=== PATIENT | female | born 1960 | race Hispanic/Latino ===

== ENCOUNTER 2018-05-25 17:21 | Emergency (ER) | payer OTHER ==
[~2018-05-25] VITALS: Ht 149.9 cm; Wt 105.2 kg
--- OUTSIDE RECORDS SUMMARY | 2018-05-25 17:23 | XMS REPORT | Continuity of Care Document ---
Author Author [facility] Organization Interface Address Unknown Phone Unavailable Problems Problem Status Onset Date Classification Date Reported Comments Source 1ST NIGHT - 85502 Active 09/19/2017 [place] G44.209 Active 09/13/2017 [facility] UNILATERAL PRIMARY OSTEOARTHRITIS OF THE Active 10/17/2015 [facility] Acid reflux Active Problem 10/04/2017 [facility] Anxiety Active Problem 10/04/2017 [facility] Arthritis Active Problem 10/04/2017 [facility] Chest pain<sup>1</sup> Resolved Problem 10/04/2017 States had chest pain about 6 months ago; pt didn't remember who she saw or what was done. Later provided info that she saw Dr. Lomeli, . Per Dr Lomeli's office pt was last seen in 2012, but now has an appointment for 12-07-15 for clearance. [facility] Cough with sputum<sup>2</sup> Resolved Problem 10/04/2017 States had a productive cough 3 weeks ago, states now resolved. [facility] Dyspnea on exertion<sup>3</sup> Active Problem 10/04/2017 Walking 2 blocks or 2 flights of stairs. [facility] Neuropathy<sup>4</sup> Active Problem 10/04/2017 Numbness 2 fingers Right hand. [facility] Obesity, morbid (<span [id number]">Confirmed</span>)<sup>5</sup> Active Problem 10/04/2017 BMI 55 [facility] Poor historian<sup>6, 7</sup> Active Problem 10/04/2017 Pt was unable to provide much information regarding her health history at clinic visit. Pt later provided some surgical history info. [facility] Final: Osteoarthritis of knee, unspecified 12/18/2015 [facility] OSTEOARTHRITIS OF KNEE, UNSPECIFIED Active [facility] Medications Medication Details Route Status Patient Instructions Ordering Provider Order Date Source enoxaparin 40 mg/0.4 mL subcutaneous solution 40 mg=0.4 mL, SUB-Q, Daily, X 21 day, # 8 mL, 0 Refill(s) Active 12/15/2015 [facility] Docusate Sodium 100 MG Oral Capsule 100 mg=1 cap, PO, BID, # 28 cap, 0 Refill(s) Active 12/15/2015 [facility] Acetaminophen 325 MG / Hydrocodone Bitartrate 10 MG Oral Tablet [[place]ab[place] 10/325] 1 tab, PO, Q6H, PRN Pain Score 4-6, X 14 day, # 60 tab, 0 Refill(s) Active 12/15/2015 [facility] promethazine 25 mg oral tablet 25 mg=1 tab, PO, Q6H, PRN Itching, 0 Refill(s) Active 12/15/2015 [facility] potassium chloride 20 mEq, 1 tab, Route: PO, Drug form: ERTAB, ONCE, Dosing Weight 96.364, kg, Priority: NOW, Start date: 12/15/15 6:55:00 CDT, Stop date: 12/15/15 6:55:00 CDTNotes: (Same as: K-Dur 20) "Do Not Crush" With food and full glass of water Inactive 12/15/2015 [facility] Morphine 30 mL, Route: IV, Initial Loading Dose: 2 mg, HEEL STIFFENER Dose: 1 mg, HEEL STIFFENER Lockout: 10 minutes, Continuous Basal Rate: 0 mg, 4 Hour Limit (In MG): 30, Drug Form: INJ, Continuous, Start date: 12/13/15 18:30:00 CDT Inactive 12/13/2015 [facility] gabapentin 300 MG Oral Capsule [Neurontin] 300 mg, Route: PO, Drug form: CAP, Q8H, Dosing Weight 96.364, kg, (CrCl > 60 ml/min), Start date: 12/13/15 16:00:00 CDT, Duration: 30 day, Stop date: 01/12/16 8:00:00 CDT Inactive 12/13/2015 [facility] ketOROLAC 30 mg/mL injectable solution 30 mg, 1 mL, Route: IVP, Drug form: INJ, Q6H, Dosing Weight 96.364, kg, PRN Pain Score 4-6, Start date: 12/13/15 14:11:00 CDT, Stop date: 12/17/15 14:10:00 CDTNotes: (Same as:Toradol) IV bolus must be given >15 seconds. Give IM administration slowly and deeply into the muscle. Not for use > 4 days MEDICATION WASTE Product Size: 30 mg Product Wasted: ___ mg No Longer Active 12/13/2015 [facility] Acetaminophen 325 MG / Oxycodone Hydrochloride 5 MG Oral Tablet [Percocet 5/325] 1 tab, Route: PO, Drug Form: TAB, Dosing Weight 96.364, kg, Q6H, PRN Pain Score 7-10, Start date: 12/13/15 14:11:00 CDT, Stop date: 01/12/16 14:10:00 CDTNotes: Do not exceed 4gm/day of acetaminophen. (Same as: Percocet-5/325) No Longer Active 12/13/2015 [facility] Protonix 40 mg, 1 tab, Route: PO, Drug form: ECTAB, Daily, Start date: 12/13/15 9:00:00 CDT, Duration: 30 day, Stop date: 01/11/16 9:00:00 CDTNotes: Tablet should not be chewed or crushed. (Same as: Protonix) No Longer Active 12/13/2015 [facility] duloxetine 60 mg, 2 cap, Route: PO, Drug form: DRC, Daily, Dosing Weight 96.364, kg, Start date: 12/13/15 9:00:00 CDT, Duration: 30 day, Stop date: 01/11/16 9:00:00 CDTNotes: (Same as: Cymbalta) (Do Not Crush) No Longer Active 12/13/2015 [facility] doxycycline hyclate 100 MG Oral Capsule 100 mg, 1 tab, Route: PO, Drug form: TAB, Daily, Dosing Weight 96.364, kg, Start date: 12/13/15 9:00:00 CDT, Duration: 30 day, Stop date: 01/11/16 9:00:00 CDTNotes: NO MILK/ANTACIDS/IRON Take 1 hour before or 2 hours after dairy products No Longer Active 12/13/2015 [facility] cyclobenzaprine 10 mg, 1 tab, Route: PO, Drug form: TAB, Daily, Dosing Weight 96.364, kg, Start date: 12/13/15 9:00:00 CDT, Duration: 30 day, Stop date: 01/11/16 9:00:00 CDTNotes: (Same As: Flexeril) No Longer Active 12/13/2015 [facility] Nuvigil 150mg tab Nuvigil 150mg tab, 1 tab, Drug form: MISC, Route: PO, Daily, 12/13/15 9:00:00 CDT, Duration: 30 day, Stop date: 01/11/16 9:00:00 CDT No Longer Active 12/13/2015 [facility] Acetaminophen 325 MG / Hydrocodone Bitartrate 10 MG Oral Tablet [[place]ab[place] 10/325] 2 tab, Route: PO, Drug Form: TAB, Dosing Weight 96.364, kg, Q6H, PRN Pain Score 7-10, Start date: 12/13/15 8:42:00 CDT, Duration: 30 day, Stop date: 01/12/16 8:41:00 CDTNotes: Do not exceed 4gm/day of acetaminophen. (Same as: Mabton 325/10) No Longer Active 12/13/2015 [facility] potassium chloride 40 mEq, 2 pkt, Route: PO, Drug form: PDR/REC, ONCE, Dosing Weight 96.364, kg, Start date: 12/13/15 7:05:00 CDT, Stop date: 12/13/15 7:05:00 CDTNotes: (Same as: K-Diana) With food and full glass of water Inactive 12/13/2015 [facility] topiramate 200 mg, 2 tab, Route: PO, Drug form: TAB, Daily, Dosing Weight 96.364, kg, Start date: 12/12/15 22:00:00 CDT, Duration: 30 day, Stop date: 01/10/16 22:00:00 CDTNotes: (Same As: Topamax) "Do Not Crush" No Longer Active 12/13/2015 [facility] Enoxaparin 40 mg, 0.4 mL, Route: SUB-Q, Drug form: INJ, [id number], Dosing Weight 96.364, kg, Consider for obese patients, Start date: 12/12/15 20:57:00 CDT, Duration: 30 day, Stop date: 01/11/16 8:57:00 CDTNotes: (Same as: Lovenox) No Longer Active 12/13/2015 [facility] Docusate Sodium 100 MG Oral Capsule 100 mg, 1 cap, Route: PO, Drug form: CAP, BID, Dosing Weight 96.364, kg, Start date: 12/12/15 17:00:00 CDT, Duration: 30 day, Stop date: 01/11/16 9:00:00 CDTNotes: (Same as: Colace) (Do Not Crush) No Longer Active 12/12/2015 [facility] ceFAZolin (SCIP) 2 gm, 100 mL, Route: IVPB, Drug form: INJ, Q8H, Dosing Weight 96.364, kg, Start date: 12/12/15 15:00:00 CDT, Duration: 1 day, Stop date: 12/13/15 7:00:00 CDTNotes: Same as Ancef No Longer Active 12/12/2015 [facility] Omeprazole 20 mg, Route: PO, Drug form: DRC, Daily, Dosing Weight 96.364, kg, Start date: 12/12/15 9:00:00 CDT, Duration: 30 day, Stop date: 01/10/16 9:00:00 CDT Inactive 12/12/2015 [facility] gabapentin 600 MG Oral Tablet 600 mg, 2 cap, Route: PO, Drug form: CAP, Daily, Dosing Weight 96.364, kg, Start date: 12/12/15 9:00:00 CDT, Duration: 30 day, Stop date: 01/10/16 9:00:00 CDTNotes: (Same as: Neurontin) No Longer Active 12/12/2015 [facility] Furosemide 20 MG Oral Tablet 20 mg, 1 tab, Route: PO, Drug form: TAB, Daily, Dosing Weight 96.364, kg, Start date: 12/12/15 9:00:00 CDT, Duration: 30 day, Stop date: 01/10/16 9:00:00 CDTNotes: (Same as: Lasix) May cause GI upset. Give with food or milk. No Longer Active 12/12/2015 [facility] Nuvigil 150 mg, Route: PO, Drug form: TAB, Daily, Dosing Weight 96.364, kg, Start date: 12/12/15 9:00:00 CDT, Duration: 30 day, Stop date: 01/10/16 9:00:00 CDT Inactive 12/12/2015 [facility] Morphine 30 mg, 30 mL, Route: IV, Initial Loading Dose: 2 mg, HEEL STIFFENER Dose: 1 mg, HEEL STIFFENER Lockout: 10 minutes, Continuous Basal Rate: 0 mg, 4 Hour Limit (In MG): 30, Drug Form: INJ, Continuous, Start date: 12/12/15 9:00:00 CDT, Duration: 30 day, Stop date: 01/11/16 8...Notes: Dose: Delay: Basal rate: 4hr limit: (Same as:Eleonora-Jc) No Longer Active 12/12/2015 [facility] Promethazine 25 mg, 1 tab, Route: PO, Drug form: TAB, Q6H, Dosing Weight 96.364, kg, PRN Itching, Start date: 12/12/15 8:59:00 CDT, Duration: 30 day, Stop date: 01/11/16 8:58:00 CDTNotes: (Same as: Phenergan) No Longer Active 12/12/2015 [facility] Hydroxyzine Hydrochloride 25 MG Oral Capsule 25 mg, 1 cap, Route: PO, Drug form: CAP, Daily, Dosing Weight 96.364, kg, PRN Itching, Start date: 12/12/15 8:58:00 CDT, Duration: 30 day, Stop date: 01/11/16 8:57:00 CDTNotes: (Same as: Vistaril) No Longer Active 12/12/2015 [facility] 200 ACTUAT Albuterol 0.09 MG/ACTUAT Metered Dose Inhaler [ProAir HFA] 90 microgram, Route: INHALER, Drug Form: AERO/A, Dosing Weight 96.364, kg, Q4H, PRN Wheezing, Start date: 12/12/15 8:57:00 CDT, Stop date: 01/11/16 8:56:00 CDTNotes: Albuterol 90 microgram/inh 8gm HFA WASTE: Aerosol - Return to Pharmacy Same as: Ventolin, Proventil No Longer Active 12/12/2015 [facility] Naloxone 0.04 mg, 0.1 mL, Route: IVP, Drug form: INJ, Q2MIN, Dosing Weight 96.364, kg, PRN Narcotic Reversal, Start date: 12/12/15 8:55:00 CDT, Duration: 30 day, Stop date: 01/11/16 8:54:00 CDTNotes: Same as Narcan No Longer Active 12/12/2015 [facility] Dulcolax Laxative 5 mg, 1 tab, Route: PO, Drug form: ECTAB, Q24H, Dosing Weight 96.364, kg, PRN Constipation, Start date: 12/12/15 8:55:00 CDT, Duration: 30 day, Stop date: 01/11/16 8:54:00 CDTNotes: (Same As: Dulcolax, Correctol) (Do Not Crush) "Do Not Crush" No Longer Active 12/12/2015 [facility] Diphenhydramine 12.5 mg, 5 mL, Route: PO, Drug form: LIQ, Q6H, Dosing Weight 96.364, kg, PRN Itching, Start date: 12/12/15 8:55:00 CDT, Duration: 30 day, Stop date: 01/11/16 8:54:00 CDTNotes: (Same as: Benadryl) No Longer Active 12/12/2015 [facility] Lactated Ringers 1,000 mL 1,000 mL, Rate: 125 ml/hr, Infuse over: 8 hr, Route: IV, Dosing Weight 96.364 kg, Total Volume: 1,000, Start date: 12/12/15 8:55:00 CDT, Duration: 30 day, Stop date: 01/11/16 8:54:00 CDT No Longer Active 12/12/2015 [facility] Ondansetron 4 mg, 2 mL, Route: IVP, Drug form: INJ, Q6H, Dosing Weight 96.364, kg, PRN Nausea & Vomiting, Start date: 12/12/15 8:55:00 CDT, Duration: 30 day, Stop date: 01/11/16 8:54:00 CDTNotes: (Same as: Grover) MEDICATION WASTE Product Size: 4 mg Product Wasted: ___ mg No Longer Active 12/12/2015 [facility] zolpidem 5 mg, 1 tab, Route: PO, Drug form: TAB, Bedtime, Dosing Weight 96.364, kg, PRN Insomnia, Start date: 12/12/15 8:55:00 CDT, Duration: 30 day, Stop date: 01/11/16 8:54:00 CDTNotes: (Same As: Ambien) No Longer Active 12/12/2015 [facility] Ancef 2 gm, 100 mL, Route: IVPB, Drug form: INJ, ONCE, Dosing Weight 96.364, kg, Start date: 12/12/15 6:23:00 CDT, Duration: 1 doses or times, Stop date: 12/12/15 6:23:00 CDT, Surgical Prophylaxis Only; For patients Notes: Same as Ancef No Longer Active 12/12/2015 [facility] Lactated Ringers 1,000 mL 1,000 mL, Rate: TKO, Route: IV, Dosing Weight 96.364 kg, Total Volume: 1,000, Start date: 12/12/15 6:23:00 CDT, Duration: 30 day, Stop date: 01/11/16 6:22:00 CDT Inactive 12/12/2015 [facility] 200 ACTUAT Albuterol 0.09 MG/ACTUAT Metered Dose Inhaler [ProAir HFA] 1 puff, INHALER, Q4H, PRN for wheezing, Verify with patient how often taking. Pt left a message that she is taking this med,, # 8.5 gm, 0 Refill(s) Active 12/06/2015 [facility] Home Medication See Instructions, Refill(s) 0 No Longer Active 12/06/2015 [facility] topiramate 100 mg oral capsule, extended release 200 mg=2 cap, PO, Daily, Takes at 2200., 0 Refill(s) Active 12/06/2015 [facility] DULoxetine 60 mg oral delayed release capsule 60 mg=1 cap, PO, Daily, Takes at 2200., # 30 cap, 0 Refill(s) Active 12/06/2015 [facility] tramadol 300 mg oral tablet, extended release 300 mg=1 tab, PO, Daily, Takes at 1400, # 30 tab, 0 Refill(s) Active 12/06/2015 [facility] Hydroxyzine Hydrochloride 25 MG Oral Capsule 25 mg=1 cap, PO, Daily, PRN Itching, # 40 cap, 0 Refill(s) Active 12/06/2015 [facility] gabapentin 600 MG Oral Tablet 600 mg=1 tab, PO, Daily, # 90 tab, 1 Refill(s) Active 12/06/2015 [facility] doxycycline hyclate 100 mg oral tablet 100 mg=1 tab, PO, Daily, Takes at 1400., # 20 tab, 0 Refill(s) Active 12/06/2015 [facility] cyclobenzaprine 10 mg oral tablet 10 mg=1 tab, PO, Daily, Takes at 1400., # 30 day, 0 Refill(s) Active 12/06/2015 [facility] armodafinil 150 MG Oral Tablet [Nuvigil] 150 mg=1 tab, PO, Daily, Takes at 0800., # 30 tab, 0 Refill(s) Active 12/06/2015 [facility] Vitamin D3 5000 intl units oral capsule 5,000 IntlUnit=1 cap, PO, Daily, # 30 cap, 1 Refill(s) Active 12/06/2015 [facility] Calcium 600 +D oral tablet 1 tab, PO, BID, # 90 tab, 0 Refill(s) Active 12/06/2015 [facility] Aspirin Enteric Coated 325 mg oral delayed release tablet 325 mg=1 tab, PO, Daily, Takes at 0800, 0 Refill(s) No Longer Active 12/06/2015 [facility] Acidophilus Probiotic Blend oral capsule 1 cap, PO, Daily, Takes at 0800, 2200., 0 Refill(s) Active 12/06/2015 [facility] lorcaserin hydrochloride 10 MG Oral Tablet [Belviq] 10 mg=1 tab, PO, BID, 0600, 1400, # 30 tab, 0 Refill(s) Active 12/06/2015 [facility] celecoxib 200 mg oral capsule 200 mg=1 cap, PO, Daily, # 30 cap, 0 Refill(s) Active 12/06/2015 [facility] promethazine 25 mg oral tablet 25 mg=1 tab, PO, Q6H, PRN Itching, Takes at 0600, 1400, 2200., # 12 tab, 0 Refill(s) No Longer Active 12/06/2015 [facility] potassium chloride 10 mEq oral capsule, extended release 10 mEq=1 cap, PO, Daily, Takes at 0600., # 30 cap, 1 Refill(s) Active 12/06/2015 [facility] omeprazole 20 mg oral delayed release capsule 20 mg=1 cap, PO, Daily, Takes at 0600., # 30 cap, 0 Refill(s) Active 12/06/2015 [facility] Furosemide 20 MG Oral Tablet 20 mg=1 tab, PO, Daily, Takes at 0600., # 30 tab, 0 Refill(s) Active 12/06/2015 [facility] Allergies, Adverse Reactions, Alerts Substance Category Reaction Severity Reaction type Status Date Reported Comments Source Immunizations Immunization Date Given Site Status Last Updated Comments Source Results Order Name Results Value Reference Range Date Interpretation Comments Source Brain wo contrast CT Brain wo contrast CT Patient Name: BELEM FONTAINE : 1960; Age: 57 years y/o Female MR: [id number] Study: Brain wo contrast CT 09/24/2017 10:35 AM CDT Ordering Physician: Giles Sifuentes MD Clinical Indication: - G44.209 Tension-type headache, unspecified, not intractable; Comparison: None TECHNIQUE: CT images were obtained from the foramen magnum to the vertex without the use of intravenous contrast on a multidetector CT. Coronal and sagittal reconstructions were obtained. CT radiation dose DLP: 820 mGy-cm FINDINGS: There is no evidence of acute intracranial hemorrhage, subacute territorial infarct, mass effect, midline shift, extra-axial fluid collection, hydrocephalus or other acute abnormalities. There is mild generalized cerebral volume loss with associated ventricular prominence. There are mild nonspecific supratentorial white matter hypodensities likely representing chronic small vessel ischemic changes in this age. There are no chronic territorial infarcts. There are calcifications in the carotid siphons and intradural vertebral arteries. The calvarium, paranasal sinuses and mastoids are unremarkable. IMPRESSION: No evidence of acute intracranial process. [id number] chronic small vessel ischemic changes in the supratentorial white matter. If there is further concern for intracranial pathology or acute stroke, further assessment with an MRI of the brain should be considered. SL: DARRYN 09/24/2017 - - Read by: Hilda Jenkins Dictated Date/time: 09/24/17 11:07 Electronically Signed by: Hilda Jenkins 09/24/17 11:10 FINAL REPORT [facility] CHEM PANEL eGFR 84 mL/min/1.73m2 12/15/2015 Result Comment: The eGFR is calculated using the CKD-EPI formula. In most young, healthy individuals the eGFR will be >90 mL/min/1.73m2. The eGFR declines with age. An eGFR of 60-89 may be normal in some populations, particularly the elderly, for whom the CKD-EPI formula has not been extensively validated. Use of the eGFR is not recommended in the following populations: Individuals with unstable creatinine concentrations, including patients and those with serious co-morbid conditions. Patients with extremes in muscle mass or diet. The data above are obtained from the National Kidney Disease Education Program (NKDEP) which additionally recommends that when the eGFR is used in patients with extremes of body mass index for purposes of drug dosing, the eGFR should be multiplied by the estimated BMI. [facility] CHEM PANEL Glucose Lvl 103 mg/dL 70 - 99 12/15/2015 [facility] CHEM PANEL Creatinine Lvl 0.80 mg/dL 0.50 - 1.40 12/15/2015 [facility] CHEM PANEL Potassium Lvl 3.4 meq/L 3.5 - 5.1 12/15/2015 [facility] CHEM PANEL BUN 10 mg/dL 7 - 22 12/15/2015 [facility] CHEM PANEL Sodium Lvl 138 meq/L 135 - 145 12/15/2015 [facility] CHEM PANEL CO2 25 meq/L 24 - 32 12/15/2015 [facility] CHEM PANEL Chloride Lvl 104 meq/L 95 - 109 12/15/2015 [facility] CHEM PANEL Calcium Lvl 8.7 mg/dL 8.5 - 10.5 12/15/2015 [facility] CHEM PANEL AGAP 12.4 meq/L 10.0 - 20.0 12/15/2015 [facility] HEMATOLOGY Hct 39.3 % 36.0 - 48.0 12/15/2015 [facility] HEMATOLOGY Hgb 12.9 g/dL 12.0 - 16.0 12/15/2015 [facility] ELECTROLYTES AGAP 13.3 meq/L 10.0 - 20.0 12/13/2015 [facility] ELECTROLYTES Potassium Lvl 3.3 meq/L 3.5 - 5.1 12/13/2015 [facility] ELECTROLYTES Sodium Lvl 142 meq/L 135 - 145 12/13/2015 [facility] ELECTROLYTES Creatinine Lvl 0.82 mg/dL 0.50 - 1.40 12/13/2015 [facility] ELECTROLYTES BUN 10 mg/dL 7 - 22 12/13/2015 [facility] ELECTROLYTES Glucose Lvl 115 mg/dL 70 - 99 12/13/2015 [facility] ELECTROLYTES eGFR 81 mL/min/1.73m2 12/13/2015 Result Comment: The eGFR is calculated using the CKD-EPI formula. In most young, healthy individuals the eGFR will be >90 mL/min/1.73m2. The eGFR declines with age. An eGFR of 60-89 may be normal in some populations, particularly the elderly, for whom the CKD-EPI formula has not been extensively validated. Use of the eGFR is not recommended in the following populations: Individuals with unstable creatinine concentrations, including patients and those with serious co-morbid conditions. Patients with extremes in muscle mass or diet. The data above are obtained from the National Kidney Disease Education Program (NKDEP) which additionally recommends that when the eGFR is used in patients with extremes of body mass index for purposes of drug dosing, the eGFR should be multiplied by the estimated BMI. [facility] ELECTROLYTES CO2 27 meq/L 24 - 32 12/13/2015 [facility] ELECTROLYTES Chloride Lvl 105 meq/L 95 - 109 12/13/2015 [facility] ELECTROLYTES Calcium Lvl 8.8 mg/dL 8.5 - 10.5 12/13/2015 [facility] HEMATOLOGY MPV 12.7 fL 7.4 - 10.4 12/13/2015 [facility] HEMATOLOGY WBC X 10x3 12.7 K/CMM 3.7 - 10.4 12/13/2015 [facility] HEMATOLOGY RBC X 10x6 4.08 M/CMM 4.20 - 5.40 12/13/2015 [facility] HEMATOLOGY Hgb 12.6 g/dL 12.0 - 16.0 12/13/2015 [facility] HEMATOLOGY Hct 37.9 % 36.0 - 48.0 12/13/2015 [facility] HEMATOLOGY MCV 92.9 fL 80.0 - 98.0 12/13/2015 [facility] HEMATOLOGY MCH 30.9 pg 27.0 - 31.0 12/13/2015 [facility] HEMATOLOGY MCHC 33.2 g/dL 32.0 - 36.0 12/13/2015 [facility] HEMATOLOGY RDW 13.1 % 11.5 - 14.5 12/13/2015 [facility] HEMATOLOGY Platelet 172 K/CMM 133 - 450 12/13/2015 [facility] HEMATOLOGY aPTT 34.6 s 22.9 - 35.8 12/13/2015 [facility] HEMATOLOGY Lymphocytes 17.0 % 20.0 - 40.0 12/13/2015 [facility] HEMATOLOGY Monocytes 8.6 % 2.0 - 12.0 12/13/2015 [facility] HEMATOLOGY Eosinophils 0.1 % 0.0 - 4.0 12/13/2015 [facility] HEMATOLOGY Basophils # 0.0 K/CMM 0.0 - 0.2 12/13/2015 [facility] HEMATOLOGY Basophils 0.1 % 0.0 - 1.0 12/13/2015 [facility] HEMATOLOGY Segs-Bands # 9.4 K/CMM 1.5 - 8.1 12/13/2015 [facility] HEMATOLOGY Lymphocytes # 2.2 K/CMM 1.0 - 5.5 12/13/2015 [facility] HEMATOLOGY Monocytes # 1.1 K/CMM 0.0 - 0.8 12/13/2015 [facility] HEMATOLOGY RBC Morph Normal (12/13/15 4:52 AM) 12/13/2015 [facility] HEMATOLOGY Segs 74.2 % 45.0 - 75.0 12/13/2015 [facility] HEMATOLOGY Large Plt Few 12/13/2015 [facility] HEMATOLOGY Eosinophils # 0.0 K/CMM 0.0 - 0.5 12/13/2015 [facility] Knee 1-2 Views unilateral DX Knee 1-2 Views unilateral DX EXAM: Right KNEE 2 VIEWS DATE: 12/12/2015 8:55 AM CDT INDICATION: Post-Reduction. Status post hemiarthroplasty medial compartment right knee COMPARISON: None. TECHNIQUE: AP and lateral views of the right knee were obtained. FINDINGS: The patient is status post hemiarthroplasty medial compartment right knee. Prosthesis is appropriately positioned. No fractures, destructive osseous lesions or orthopedic complications are seen. Mild degenerative changes/osteoarthritis involving lateral compartment and patellofemoral compartment. Postsurgical changes in soft tissues. IMPRESSION: Status post hemiarthroplasty medial compartment right knee. 12/12/2015 - - Read by: Geronimo Aguayo MD Dictated Date/time: 12/12/15 11:52 Electronically Signed by: Geronimo Aguayo MD 12/12/15 11:54 FINAL REPORT [facility] ELECTROLYTES Sodium Lvl 144 meq/L 135 - 145 12/05/2015 [facility] ELECTROLYTES Creatinine Lvl 0.82 mg/dL 0.50 - 1.40 12/05/2015 [facility] ELECTROLYTES Chloride Lvl 108 meq/L 95 - 109 12/05/2015 [facility] ELECTROLYTES Potassium Lvl 3.8 meq/L 3.5 - 5.1 12/05/2015 [facility] ELECTROLYTES Glucose Lvl 98 mg/dL 70 - 99 12/05/2015 [facility] ELECTROLYTES BUN 15 mg/dL 7 - 22 12/05/2015 [facility] ELECTROLYTES CO2 26 meq/L 24 - 32 12/05/2015 [facility] ELECTROLYTES Calcium Lvl 9.1 mg/dL 8.5 - 10.5 12/05/2015 [facility] ELECTROLYTES eGFR 81 mL/min/1.73m2 12/05/2015 Result Comment: The eGFR is calculated using the CKD-EPI formula. In most young, healthy individuals the eGFR will be >90 mL/min/1.73m2. The eGFR declines with age. An eGFR of 60-89 may be normal in some populations, particularly the elderly, for whom the CKD-EPI formula has not been extensively validated. Use of the eGFR is not recommended in the following populations: Individuals with unstable creatinine concentrations, including patients and those with serious co-morbid conditions. Patients with extremes in muscle mass or diet. The data above are obtained from the National Kidney Disease Education Program (NKDEP) which additionally recommends that when the eGFR is used in patients with extremes of body mass index for purposes of drug dosing, the eGFR should be multiplied by the estimated BMI. [facility] ELECTROLYTES AGAP 13.8 meq/L 10.0 - 20.0 12/05/2015 [facility] HEMATOLOGY RDW 12.8 % 11.5 - 14.5 12/05/2015 [facility] HEMATOLOGY Platelet 176 K/CMM 133 - 450 12/05/2015 [facility] HEMATOLOGY MPV 11.9 fL 7.4 - 10.4 12/05/2015 [facility] HEMATOLOGY RBC X 10x6 3.95 M/CMM 4.20 - 5.40 12/05/2015 [facility] HEMATOLOGY Hgb 12.1 g/dL 12.0 - 16.0 12/05/2015 [facility] HEMATOLOGY MCH 30.6 pg 27.0 - 31.0 12/05/2015 [facility] HEMATOLOGY MCHC 32.7 g/dL 32.0 - 36.0 12/05/2015 [facility] HEMATOLOGY Hct 37.0 % 36.0 - 48.0 12/05/2015 [facility] HEMATOLOGY MCV 93.7 fL 80.0 - 98.0 12/05/2015 [facility] HEMATOLOGY WBC X 10x3 5.9 K/CMM 3.7 - 10.4 12/05/2015 [facility] HEMATOLOGY Monocytes # 0.6 K/CMM 0.0 - 0.8 12/05/2015 [facility] HEMATOLOGY Lymphocytes # 2.0 K/CMM 1.0 - 5.5 12/05/2015 [facility] HEMATOLOGY Basophils # 0.0 K/CMM 0.0 - 0.2 12/05/2015 [facility] HEMATOLOGY Eosinophils # 0.3 K/CMM 0.0 - 0.5 12/05/2015 [facility] HEMATOLOGY Basophils 0.0 % 0.0 - 1.0 12/05/2015 [facility] HEMATOLOGY Monocytes 9.9 % 2.0 - 12.0 12/05/2015 [facility] HEMATOLOGY Lymphocytes 33.8 % 20.0 - 40.0 12/05/2015 [facility] HEMATOLOGY Eosinophils 4.6 % 0.0 - 4.0 12/05/2015 [facility] HEMATOLOGY Segs-Bands # 3.0 K/CMM 1.5 - 8.1 12/05/2015 [facility] HEMATOLOGY Segs 51.7 % 45.0 - 75.0 12/05/2015 [facility] Vital Signs Vital Sign Value Date Comments Source Respitory Rate 16 12/15/2015 [facility] Systolic (mm Hg) 129 12/15/2015 [facility] Diastolic (mm Hg) 63 12/15/2015 [facility] Heart Rate 78 12/15/2015 [facility] Temperature Oral (F) 98.9 F 12/15/2015 [facility] Heart Rate 88 12/15/2015 [facility] Systolic (mm Hg) 141 12/15/2015 [facility] Diastolic (mm Hg) 78 12/15/2015 [facility] Respitory Rate 16 12/15/2015 [facility] Temperature Oral (F) 98.7 F 12/15/2015 [facility] Systolic (mm Hg) 124 12/15/2015 [facility] Diastolic (mm Hg) 64 12/15/2015 [facility] Respitory Rate 16 12/15/2015 [facility] Temperature Oral (F) 98.7 F 12/15/2015 [facility] Heart Rate 94 12/15/2015 [facility] Weight 96.364 12/12/2015 [facility] BMI Calculated 53.17 12/12/2015 [facility] Height 134.62 cm 12/05/2015 [facility] Encounters Location Location Details Encounter Type Encounter Number Reason For Visit Attending Provider ADM Date DC Date Status Source [facility] Inpatient [id number] John Riya 12/12/2015 12/15/2015 [facility] Outpatient [id number] Giles Sifuentes 09/24/2017 09/25/2017 [facility] Outpatient [id number] Guilherme Orozco 10/01/2017 10/02/2017 [facility] Procedures Procedure Code Date Perfomer Comments Source Lumbar spinal fusion<sup>1</sup> [id number] 09/18/2013 Stage I L5-S1 Lumbar Discestomy and fusion. [facility] Lumbar spinal fusion<sup>1</sup> [id number] 09/18/2013 Stage I L5-S1 Lumbar Discestomy and fusion. [facility] Injection of steroid into facet joint<sup>2</sup> [id number] 08/31/2011 L5-S1 [facility] Injection of steroid into facet joint<sup>2</sup> [id number] 08/31/2011 L5-S1 [facility] Procedure on spine<sup>3</sup> [id number] 06/22/2009 L2-, partoal L3 corpectomy, decompression and anterior Spinal fusion with fixation from L1- L4. [facility] Procedure on spine<sup>3</sup> [id number] 06/22/2009 L2-, partoal L3 corpectomy, decompression and anterior Spinal fusion with fixation from L1- L4. [facility] Spinal decompression with discectomy<sup>4</sup> [id number] 08/18/2007 L1-L2, L2-L3 Anterior discetomy and fusion. [facility] Spinal decompression with discectomy<sup>4</sup> [id number] 08/18/2007 L1-L2, L2-L3 Anterior discetomy and fusion. [facility] Procedure on spine<sup>5</sup> [id number] Multiple spine procedures including removal of [id number], I & D Lumbar wound, 2007, (pt doesn't know what kind of infection, denies MRSA); Decompression/Fusion L3-4, 2002 and 2004 [facility] Procedure on spine<sup>5</sup> [id number] Multiple spine procedures including removal of [id number], I & D Lumbar wound, 2007, (pt doesn't know what kind of infection, denies MRSA); Decompression/Fusion L3-4, 2002 and 2004 [facility]
--- OUTSIDE RECORDS SUMMARY | 2018-05-25 17:23 | XMS REPORT | Summary of Care ---
Author Author [facility] Organization [facility] Address Unknown Phone Unavailable Encounter PRECIOUS Foster(MCKENNA) [id number] Date(s): 09/24/17 - 09/24/17 [facility] [address] [place] [address]- [phone] Discharge Disposition: Home or Self Care Attending Physician: Giles Sifuentes MD Admitting Physician: Giles Sifuentes MD Referring Physician: Giles Sifuentes MD Vital Signs No data available for this section Problem List Condition Effective Dates Status Health Status Informant Acid Active reflux(Confirmed) Anxiety(Confirmed) Active Arthritis(Confirmed) Active Chest Resolved pain(Confirmed)1 Cough with Resolved sputum(Confirmed)2 Dyspnea on Active exertion(Confirmed)3 Neuropathy(Confirmed Active )4 Obesity, morbid Active (more than 100 lbs over ideal weight or BMI > 40)(Confirmed)5 Poor Active historian(Confirmed) 6, 7 1States had chest pain about 6 months ago; pt didn't remember who she saw or what was done. Later provided info that she saw Dr. Lomeli, . Per Dr Lomeli's office pt was last seen in 2012, but now has an appointment for 12-07-15 for clearance. 2States had a productive cough 3 weeks ago, states now resolved. 3Walking 2 blocks or 2 flights of stairs. 4Numbness 2 fingers Right hand. 5BMI 55 6Pt denies memory issues,friend with patient states her takes care of her medical arrangements. 7Pt was unable to provide much information regarding her health history at clinic visit. Pt later provided some surgical history info. Allergies, Adverse Reactions, Alerts Substance Reaction Severity Status NKDA Active Medications No data available for this section Results No data available for this section Immunizations No data available for this section Procedures Procedure Date Related Diagnosis Body Site Status Lumbar spinal fusion1 09/18/13 Completed Injection of steroid into facet joint2 08/31/11 Completed Procedure on spine3 06/22/09 Completed Spinal decompression with discectomy4 08/18/07 Completed Procedure on spine5 Completed 1Stage I L5-S1 Lumbar Discestomy and fusion. 2L5-S1 3L2-, partoal L3 corpectomy, decompression and anterior Spinal fusion with fixation from L1-L4. 4L1-L2, L2-L3 Anterior discetomy and fusion. 5Multiple spine procedures including removal of [id number], I & D Lumbar wound, 2007, (pt doesn't know what kind of infection, denies MRSA); De compression/Fusion L3-4, 2002 and 2004 Social History Social History Type Response Substance Abuse Use: None. Exercise 1 Alcohol Never Smoking Status Never smoker; Exposure to Tobacco Smoke None; Cigarette Smoking Last 365 Days No; Reg Smoking Cessation Counseling No entered on: 12/12/15 1Not currently exercising; states would become dyspneic if walked 2 blocks or went up 2 flights of stairs. Assessment and Plan No data available for this section
--- OUTSIDE RECORDS SUMMARY | 2018-05-25 17:23 | XMS REPORT | Summary of Care ---
Author Author [facility] Organization [facility] Address Unknown Phone Unavailable Encounter PRECIOUS Foster(MCKENNA) [id number] Date(s): 10/01/17 - 10/01/17 [facility] [address] [place] [address]- Discharge Disposition: Home or Self Care Attending Physician: Guilherme Orozco MD Referring Physician: Guilherme Orozco MD Vital Signs No data available for [...] Diagnosis Body Site Status Lumbar spinal fusion1 5/30/14 Completed Injection of steroid into facet joint2 08/31/11 Completed Procedure on spine3 06/22/09 Completed Spinal decompression with discectomy4 08/18/07 Completed Procedure on spine5 Completed 1Stage I L5-S1 Lumbar Discestomy and fusion. 2L5-S1 3L2-, partoal L3 corpectomy, decompression and anterior Spinal fusion with fixation from L1-L4. 4L1-L2, L2-L3 Anterior discetomy and fusion. 5Multiple spine procedures including removal of [id number], I & D Lumbar wound, 2007, (pt [...]
--- OUTSIDE RECORDS SUMMARY | 2018-05-25 17:23 | XMS REPORT | Summary of Care ---
Author Author [facility] Organization [facility] Address Unknown Phone Unavailable Encounter PRECIOUS Foster(MCKENNA) [id number] Date(s): 12/12/15 - 12/15/15 [facility] [address] [place] [address]- [phone] Final: Osteoarthritis of knee, unspecified Discharge Disposition: Home or Self Care Attending Physician: John Ritter MD Admitting Physician: John Ritter MD Referring Physician: John Ritter MD Vital Signs 1 2 3 Most recent to oldest [Reference Range]: 134.62 cm (12/05/15 10:34 AM) Height 98.9 DegF (12/15/15 7:06 AM) 98.7 DegF (12/15/15 3:00 AM) 98.7 DegF (12/15/15 12:55 AM) Temperature Oral [96.4-99.1 DegF] 129/63 mmHg (12/15/15 7:06 AM) 141/78 mmHg *HI* (12/15/15 3:00 AM) 124/64 mmHg (12/15/15 12:55 AM) Blood Pressure [90-140/60-90 mmHg] 16 BRMIN (12/15/15 7:06 AM) 16 BRMIN (12/15/15 3:00 AM) 16 BRMIN (12/15/15 12:55 AM) Respiratory Rate [14-20 BRMIN] 78 bpm (12/15/15 7:06 AM) 88 bpm (12/15/15 3:00 AM) 94 bpm (12/15/15 12:55 AM) Peripheral Pulse Rate [60-100 bpm] 96.364 kg (12/12/15 5:55 AM) Weight 53.17 m2 (12/12/15 5:55 AM) Body Mass Index Problem List Condition Effective Dates Status Health [...] Substance Reaction Severity Status NKDA Active Medications Acidophilus Probiotic Blend oral capsule 1 cap, PO, Daily, Takes at 0800, 2200., 0 Refill(s) Start Date: 12/06/15 Status: Ordered Ancef 2 gm, 100 mL, Route: IVPB, Drug form: INJ, ONCE, Dosing Weight 96.364, kg, Start date: 12/12/15 6:23:00 CDT, Duration: 1 doses or times, Stop date: 12/12/15 6:2 3:00 CDT, Surgical Prophylaxis Only; For patients < 120 kg Notes: Same as Ancef Start Date: 12/12/15 Stop Date: 12/14/15 Status: Completed Aspirin Enteric Coated 325 mg oral delayed release tablet 325 mg=1 tab, PO, Daily, Takes at 0800, 0 Refill(s) Start Date: 12/06/15 Stop Date: 12/15/15 Status: Discontinued Belviq 10 mg oral tablet 10 mg=1 tab, PO, BID, 0600, 1400, # 30 tab, 0 Refill(s) Start Date: 12/06/15 Status: Ordered Calcium 600 +D oral tablet 1 tab, PO, BID, # 90 tab, 0 Refill(s) Start Date: 12/06/15 Status: Ordered ceFAZolin (SCIP) 2 gm, 100 mL, Route: IVPB, Drug form: INJ, Q8H, Dosing Weight 96.364, kg, Start date: 12/12/15 15:00:00 CDT, Duration: 1 day, Stop date: 12/13/15 7:00:00 CDT Notes: Same as Ancef Start Date: 12/12/15 Stop Date: 12/13/15 Status: Completed celecoxib 200 mg oral capsule 200 mg=1 cap, PO, Daily, # 30 cap, 0 Refill(s) Start Date: 12/06/15 Status: Ordered cyclobenzaprine 10 mg, 1 tab, Route: PO, Drug form: TAB, Daily, Dosing Weight 96.364, kg, Start date: 12/13/15 9:00:00 CDT, Duration: 30 day, Stop date: 01/11/16 9:00:00 CDT Notes: (Same As: Flexeril) Start Date: 12/13/15 Stop Date: 12/15/15 Status: Discontinued cyclobenzaprine 10 mg oral tablet 10 mg=1 tab, PO, Daily, Takes at 1400., # 30 day, 0 Refill(s) Start Date: 12/06/15 Stop Date: 01/05/16 Status: Ordered diphenhydrAMINE 12.5 mg, 5 mL, Route: PO, Drug form: LIQ, Q6H, Dosing Weight 96.364, kg, PRN Itc richmond, Start date: 12/12/15 8:55:00 CDT, Duration: 30 day, Stop date: 01/11/16 8: 54:00 CDT Notes: (Same as: Benadryl) Start Date: 12/12/15 Stop Date: 12/15/15 Status: Discontinued docusate sodium 100 mg oral capsule 100 mg, 1 cap, Route: PO, Drug form: CAP, BID, Dosing Weight 96.364, kg, Start d ate: 12/12/15 17:00:00 CDT, Duration: 30 day, Stop date: 01/11/16 9:00:00 CDT Notes: (Same as: Colace) (Do Not Crush) Start Date: 12/12/15 Stop Date: 12/15/15 Status: Discontinued docusate sodium 100 mg oral capsule 100 mg=1 cap, PO, BID, # 28 cap, 0 Refill(s) Start Date: 12/15/15 Stop Date: 12/29/15 Status: Ordered doxycycline hyclate 100 mg oral capsule 100 mg, 1 tab, Route: PO, Drug form: TAB, Daily, Dosing Weight 96.364, kg, Start date: 12/13/15 9:00:00 CDT, Duration: 30 day, Stop date: 01/11/16 9:00:00 CDT Notes: NO MILK/ANTACIDS/IRON Take 1 hour before or 2 hours after dairy products Start Date: 12/13/15 Stop Date: 12/15/15 Status: Discontinued doxycycline hyclate 100 mg oral tablet 100 mg=1 tab, PO, Daily, Takes at 1400., # 20 tab, 0 Refill(s) Start Date: 12/06/15 Stop Date: 12/16/15 Status: Ordered Dulcolax Laxative 5 mg, 1 tab, Route: PO, Drug form: ECTAB, Q24H, Dosing Weight 96.364, kg, PRN Co nstipation, Start date: 12/12/15 8:55:00 CDT, Duration: 30 day, Stop date: 01/10 8:54:00 CDT Notes: (Same As: Dulcolax, Correctol) (Do Not Crush) "Do Not Crush" Start Date: 12/12/15 Stop Date: 12/15/15 Status: Discontinued DULoxetine 60 mg, 2 cap, Route: PO, Drug form: DRC, Daily, Dosing Weight 96.364, kg, Start date: 12/13/15 9:00:00 CDT, Duration: 30 day, Stop date: 01/11/16 9:00:00 CDT Notes: (Same as: Cymbalta) (Do Not Crush) Start Date: 12/13/15 Stop Date: 12/15/15 Status: Discontinued DULoxetine 60 mg oral delayed release capsule 60 mg=1 cap, PO, Daily, Takes at 2200., # 30 cap, 0 Refill(s) Start Date: 12/06/15 Status: Ordered enoxaparin 40 mg, 0.4 mL, Route: SUB-Q, Drug form: INJ, [id number], Dosing Weight 96.364, kg, Consider for obese patients, Start date: 12/12/15 20:57:00 CDT, Duration: 30 da y, Stop date: 01/11/16 8:57:00 CDT Notes: (Same as: Lovenox) Start Date: 12/12/15 Stop Date: 12/15/15 Status: Discontinued enoxaparin 40 mg/0.4 mL subcutaneous solution 40 mg=0.4 mL, SUB-Q, Daily, X 21 day, # 8 mL, 0 Refill(s) Start Date: 12/15/15 Stop Date: 01/05/16 Status: Ordered furosemide 20 mg oral tablet 20 mg=1 tab, PO, Daily, Takes at 0600., # 30 tab, 0 Refill(s) Start Date: 12/06/15 Status: Ordered furosemide 20 mg oral tablet 20 mg, 1 tab, Route: PO, Drug form: TAB, Daily, Dosing Weight 96.364, kg, Start date: 12/12/15 9:00:00 CDT, Duration: 30 day, Stop date: 01/10/16 9:00:00 CDT Notes: (Same as: Lasix) May cause GI upset. Give with food or milk. Start Date: 12/12/15 Stop Date: 12/15/15 Status: Discontinued gabapentin 600 mg oral tablet 600 mg, 2 cap, Route: PO, Drug form: CAP, Daily, Dosing Weight 96.364, kg, Start date: 12/12/15 9:00:00 CDT, Duration: 30 day, Stop date: 01/10/16 9:00:00 CDT Notes: (Same as: Neurontin) Start Date: 12/12/15 Stop Date: 12/15/15 Status: Discontinued gabapentin 600 mg oral tablet 600 mg=1 tab, PO, Daily, # 90 tab, 1 Refill(s) Start Date: 12/06/15 Status: Ordered Home Medication See Instructions, Refill(s) 0 Start Date: 12/06/15 Stop Date: 12/15/15 Status: Discontinued hydrOXYzine pamoate 25 mg oral capsule 25 mg, 1 cap, Route: PO, Drug form: CAP, Daily, Dosing Weight 96.364, kg, PRN It michael, Start date: 12/12/15 8:58:00 CDT, Duration: 30 day, Stop date: 01/11/16 8 :57:00 CDT Notes: (Same as: Vistaril) Start Date: 12/12/15 Stop Date: 12/15/15 Status: Discontinued hydrOXYzine pamoate 25 mg oral capsule 25 mg=1 cap, PO, Daily, PRN Itching, # 40 cap, 0 Refill(s) Start Date: 12/06/15 Stop Date: 12/16/15 Status: Ordered ketOROLAC 30 mg/mL injectable solution 30 mg, 1 mL, Route: IVP, Drug form: INJ, Q6H, Dosing Weight 96.364, kg, PRN Pain Score 4-6, Start date: 12/13/15 14:11:00 CDT, Stop date: 12/17/15 14:10:00 CDT Notes: (Same as:Toradol) IV bolus must be given >15 seconds. Give IM administration slowly and deeply into the muscle.Not for use > 4 days MEDICATION WASTE Product Size: 30 mgProduct Wasted: ___ mg Start Date: 12/13/15 Stop Date: 12/15/15 Status: Discontinued Lactated Ringers 1,000 mL 1,000 mL, Rate: TKO, Route: IV, Dosing Weight 96.364 kg, Total Volume: 1,000, St art date: 12/12/15 6:23:00 CDT, Duration: 30 day, Stop date: 01/11/16 6:22:00 CD T Start Date: 12/12/15 Stop Date: 12/12/15 Status: Discontinued Lactated Ringers 1,000 mL 1,000 mL, Rate: 125 ml/hr, Infuse over: 8 hr, Route: IV, Dosing Weight 96.364 kg , Total Volume: 1,000, Start date: 12/12/15 8:55:00 CDT, Duration: 30 day, Stop date: 01/11/16 8:54:00 CDT Start Date: 12/12/15 Stop Date: 12/13/15 Status: Discontinued MORPhine sulfate FLOOR COVERING PRINTER 30 mg/30 ml INJ syringe 30 mg 30 mg, 30 mL, Route: IV, Initial Loading Dose: 2 mg, FLOOR COVERING PRINTER Dose: 1 mg, FLOOR COVERING PRINTER Lockou t: 10 minutes, Continuous Basal Rate: 0 mg, 4 Hour Limit (In MG): 30, Drug Form: INJ, Continuous, Start date: 12/12/15 9:00:00 CDT, Duration: 30 day, Stop date: 01/11/16 8... Notes: Dose: Delay: Basal rate: 4hr limit:( Same as:Alana) Start Date: 12/12/15 Stop Date: 12/13/15 Status: Discontinued MORPhine sulfate FLOOR COVERING PRINTER 30 mg/30 ml INJ syringe 30 mg 30 mL, Route: IV, Initial Loading Dose: 2 mg, FLOOR COVERING PRINTER Dose: 1 mg, FLOOR COVERING PRINTER Lockout: 10 m inutes, Continuous Basal Rate: 0 mg, 4 Hour Limit (In MG): 30, Drug Form: INJ, C ontinuous, Start date: 12/13/15 18:30:00 CDT Start Date: 12/13/15 Stop Date: 12/13/15 Status: Canceled naloxone 0.04 mg, 0.1 mL, Route: IVP, Drug form: INJ, Q2MIN, Dosing Weight 96.364, kg, RI N Narcotic Reversal, Start date: 12/12/15 8:55:00 CDT, Duration: 30 day, Stop da te: 01/11/16 8:54:00 CDT Notes: Same as Narcan Start Date: 12/12/15 Stop Date: 12/15/15 Status: Discontinued Neurontin 300 mg oral capsule 300 mg, Route: PO, Drug form: CAP, Q8H, Dosing Weight 96.364, kg, (CrCl > 60 ml/min), Start date: 12/13/15 16:00:00 CDT, Duration: 30 day, Stop date: 8:00:00 CDT Start Date: 12/13/15 Stop Date: 12/13/15 Status: Canceled Neurontin 300 mg oral capsule 300 mg, 1 cap, Route: PO, Drug form: CAP, Q8H, Dosing Weight 96.364, kg, (CrCl > 60 ml/min), Start date: 12/13/15 16:00:00 CDT, Duration: 30 day, Stop date: 8:00:00 CDT Notes: (Same as: Neurontin) Start Date: 12/13/15 Stop Date: 12/13/15 Status: Discontinued [place] 10/325 oral tablet 1 tab, PO, Q6H, PRN Pain Score 4-6, X 14 day, # 60 tab, 0 Refill(s) Start Date: 12/15/15 Stop Date: 12/29/15 Status: Ordered [place] 10/325 oral tablet 2 tab, Route: PO, Drug Form: TAB, Dosing Weight 96.364, kg, Q6H, PRN Pain Score 7-10, Start date: 12/13/15 8:42:00 CDT, Duration: 30 day, Stop date: 01/12/16 8: 41:00 CDT Notes: Do not exceed 4gm/day of acetaminophen. (Same as: [place] 325/10) Start Date: 12/13/15 Stop Date: 12/15/15 Status: Discontinued [place] 10/325 oral tablet 1 tab, Route: PO, Drug Form: TAB, Dosing Weight 96.364, kg, Q6H, PRN Pain Score 4-6, Start date: 12/13/15 8:42:00 CDT, Duration: 30 day, Stop date: 01/12/16 8:4 1:00 CDT Notes: Do not exceed 4gm/day of acetaminophen. (Same as: [place] 325/10) Start Date: 12/13/15 Stop Date: 12/15/15 Status: Discontinued Nuvigil 150 mg, Route: PO, Drug form: TAB, Daily, Dosing Weight 96.364, kg, Start date: 12/12/15 9:00:00 CDT, Duration: 30 day, Stop date: 01/10/16 9:00:00 CDT Start Date: 12/12/15 Stop Date: 12/12/15 Status: Deleted Nuvigil 150 mg oral tablet 150 mg=1 tab, PO, Daily, Takes at 0800., # 30 tab, 0 Refill(s) Start Date: 12/06/15 Status: Ordered Nuvigil 150mg tab Nuvigil 150mg tab, 1 tab, Drug form: MISC, Route: PO, Daily, 12/13/15 9:00:00 CD T, Duration: 30 day, Stop date: 01/11/16 9:00:00 CDT Start Date: 12/13/15 Stop Date: 12/15/15 Status: Discontinued omeprazole 20 mg, Route: PO, Drug form: DRC, Daily, Dosing Weight 96.364, kg, Start date: 0 12/12/15 9:00:00 CDT, Duration: 30 day, Stop date: 01/10/16 9:00:00 CDT Start Date: 12/12/15 Stop Date: 12/12/15 Status: Deleted omeprazole 20 mg oral delayed release capsule 20 mg=1 cap, PO, Daily, Takes at 0600., # 30 cap, 0 Refill(s) Start Date: 12/06/15 Stop Date: 01/05/16 Status: Ordered ondansetron 4 mg, 2 mL, Route: IVP, Drug form: INJ, Q6H, Dosing Weight 96.364, kg, PRN Nause a & Vomiting, Start date: 12/12/15 8:55:00 CDT, Duration: 30 day, Stop date: 01/11/16 8:54:00 CDT Notes: (Same as: Grover) MEDICATION WASTE Product Size: 4 mgProduct Was adelina: ___ mg Start Date: 12/12/15 Stop Date: 12/15/15 Status: Discontinued Percocet 5/325 oral tablet 1 tab, Route: PO, Drug Form: TAB, Dosing Weight 96.364, kg, Q6H, PRN Pain Score 7-10, Start date: 12/13/15 14:11:00 CDT, Stop date: 01/12/16 14:10:00 CDT Notes: Do not exceed 4gm/day of acetaminophen. (Same as: Percocet-5/325) Start Date: 12/13/15 Stop Date: 12/15/15 Status: Discontinued potassium chloride 40 mEq, 2 pkt, Route: PO, Drug form: PDR/REC, ONCE, Dosing Weight 96.364, kg, St art date: 12/13/15 7:05:00 CDT, Stop date: 12/13/15 7:05:00 CDT Notes: (Same as: K-Diana) With food and full glass of water Start Date: 12/13/15 Stop Date: 12/13/15 Status: Completed potassium chloride 20 mEq, 1 tab, Route: PO, Drug form: ERTAB, ONCE, Dosing Weight 96.364, kg, Prio rity: NOW, Start date: 12/15/15 6:55:00 CDT, Stop date: 12/15/15 6:55:00 CDT Notes: (Same as: K-Dur 20)"Do Not Crush" With food and full glass of water Start Date: 12/15/15 Stop Date: 12/15/15 Status: Completed potassium chloride 10 mEq oral capsule, extended release 10 mEq=1 cap, PO, Daily, Takes at 0600., # 30 cap, 1 Refill(s) Start Date: 12/06/15 Status: Ordered ProAir HFA 90 mcg/inh inhalation aerosol with adapter 90 microgram, Route: INHALER, Drug Form: AERO/A, Dosing Weight 96.364, kg, Q4H, PRN Wheezing, Start date: 12/12/15 8:57:00 CDT, Stop date: 01/11/16 8:56:00 CDT Notes: Albuterol 90 microgram/inh 8gm HFAWASTE: Aerosol - Return to Pharmacy Sa wy as: Mayela Springer Start Date: 12/12/15 Stop Date: 12/15/15 Status: Discontinued ProAir HFA 90 mcg/inh inhalation aerosol with adapter 1 puff, INHALER, Q4H, PRN for wheezing, Verify with patient how often taking. Pt left a message that she is taking this med,, # 8.5 gm, 0 Refill(s) Start Date: 12/06/15 Status: Ordered promethazine 25 mg, 1 tab, Route: PO, Drug form: TAB, Q6H, Dosing Weight 96.364, kg, PRN Itch ing, Start date: 12/12/15 8:59:00 CDT, Duration: 30 day, Stop date: 01/11/16 8:5 8:00 CDT Notes: (Same as: Phenergan) Start Date: 12/12/15 Stop Date: 12/15/15 Status: Discontinued promethazine 25 mg oral tablet 25 mg=1 tab, PO, Q6H, PRN Itching, Takes at 0600, 1400, 2200., # 12 tab, 0 Refil l(s) Start Date: 12/06/15 Stop Date: 12/15/15 Status: Discontinued promethazine 25 mg oral tablet 25 mg=1 tab, PO, Q6H, PRN Itching, 0 Refill(s) Start Date: 12/15/15 Status: Ordered Protonix 40 mg, 1 tab, Route: PO, Drug form: ECTAB, Daily, Start date: 12/13/15 9:00:00 C DT, Duration: 30 day, Stop date: 01/11/16 9:00:00 CDT Notes: Tablet should not be chewed or crushed.(Same as: Protonix) Start Date: 12/13/15 Stop Date: 12/15/15 Status: Discontinued topiramate 200 mg, 2 tab, Route: PO, Drug form: TAB, Daily, Dosing Weight 96.364, kg, Start date: 12/12/15 22:00:00 CDT, Duration: 30 day, Stop date: 01/10/16 22:00:00 CDT Notes: (Same As: Topamax)"Do Not Crush" Start Date: 12/12/15 Stop Date: 12/15/15 Status: Discontinued topiramate 100 mg oral capsule, extended release 200 mg=2 cap, PO, Daily, Takes at 2200., 0 Refill(s) Start Date: 12/06/15 Status: Ordered tramadol 300 mg oral tablet, extended release 300 mg=1 tab, PO, Daily, Takes at 1400, # 30 tab, 0 Refill(s) Start Date: 12/06/15 Status: Ordered Vitamin D3 5000 intl units oral capsule 5,000 IntlUnit=1 cap, PO, Daily, # 30 cap, 1 Refill(s) Start Date: 12/06/15 Status: Ordered zolpidem 5 mg, 1 tab, Route: PO, Drug form: TAB, Bedtime, Dosing Weight 96.364, kg, PRN I nsomnia, Start date: 12/12/15 8:55:00 CDT, Duration: 30 day, Stop date: 01/11/16 8:54:00 CDT Notes: (Same As: Ambien) Start Date: 12/12/15 Stop Date: 12/15/15 Status: Discontinued Results ELECTROLYTES 1 2 3 Most recent to oldest [Reference Range]: 138 mEq/L (12/15/15 3:59 AM) 142 mEq/L (12/13/15 4:52 AM) 144 mEq/L (12/05/15 10:52 AM) Sodium Lvl [135-145 mEq/L] 3.4 mEq/L *LOW* (12/15/15 3:59 AM) 3.3 mEq/L *LOW* (12/13/15 4:52 AM) 3.8 mEq/L (12/05/15 10:52 AM) Potassium Lvl [3.5-5.1 mEq/L] 104 mEq/L (12/15/15 3:59 AM) 105 mEq/L (12/13/15 4:52 AM) 108 mEq/L (12/05/15 10:52 AM) Chloride Lvl [95-109 mEq/L] 25 mEq/L (12/15/15 3:59 AM) 27 mEq/L (12/13/15 4:52 AM) 26 mEq/L (12/05/15 10:52 AM) CO2 [24-32 mEq/L] 12.4 mEq/L (12/15/15 3:59 AM) 13.3 mEq/L (12/13/15 4:52 AM) 13.8 mEq/L (12/05/15 10:52 AM) AGAP [10.0-20.0 mEq/L] CHEM PANEL 1 2 3 Most recent to oldest [Reference Range]: 0.80 mg/dL (12/15/15 3:59 AM) 0.82 mg/dL (12/13/15 4:52 AM) 0.82 mg/dL (12/05/15 10:52 AM) Creatinine Lvl [0.50-1.40 mg/dL] 84 mL/min/1.73m2 1 *NA* (12/15/15 3:59 AM) 81 mL/min/1.73m2 2 *NA* (12/13/15 4:52 AM) 81 mL/min/1.73m2 3 *NA* (12/05/15 10:52 AM) eGFR 10 mg/dL (12/15/15 3:59 AM) 10 mg/dL (12/13/15 4:52 AM) 15 mg/dL (12/05/15 10:52 AM) BUN [7-22 mg/dL] 103 mg/dL *HI* (12/15/15 3:59 AM) 115 mg/dL *HI* (12/13/15 4:52 AM) 98 mg/dL (12/05/15 10:52 AM) Glucose Lvl [70-99 mg/dL] 8.7 mg/dL (12/15/15 3:59 AM) 8.8 mg/dL (12/13/15 4:52 AM) 9.1 mg/dL (12/05/15 10:52 AM) Calcium Lvl [8.5-10.5 mg/dL] 1Result Comment: The eGFR is calculated using the [...] from the National Kidney Disease Education Program ( NKDEP) which additionally recommends that when the eGFR is used in patients with extremes of body mass index for purposes of drug dosing, the eGFR should be mul tiplied by the estimated BMI. 2Result Comment: The eGFR is calculated using the [...] from the National Kidney Disease Education Program ( NKDEP) which additionally recommends that when the eGFR is used in patients with extremes of body mass index for purposes of drug dosing, the eGFR should be mul tiplied by the estimated BMI. 3Result Comment: The eGFR is calculated using the [...] from the National Kidney Disease Education Program ( NKDEP) which additionally recommends that when the eGFR is used in patients with extremes of body mass index for purposes of drug dosing, the eGFR should be mul tiplied by the estimated BMI. HEMATOLOGY 1 2 3 Most recent to oldest [Reference Range]: 12.7 K/CMM *HI* (12/13/15 4:52 AM) 5.9 K/CMM (12/05/15 10:52 AM) WBC [3.7-10.4 K/CMM] 4.08 M/CMM *LOW* (12/13/15 4:52 AM) 3.95 M/CMM *LOW* (12/05/15 10:52 AM) RBC [4.20-5.40 M/CMM] 12.9 g/dL (12/15/15 3:59 AM) 12.6 g/dL (12/13/15 4:52 AM) 12.1 g/dL (12/05/15 10:52 AM) Hgb [12.0-16.0 g/dL] 39.3 % (12/15/15 3:59 AM) 37.9 % (12/13/15 4:52 AM) 37.0 % (12/05/15 10:52 AM) Hct [36.0-48.0 %] 92.9 fL (12/13/15 4:52 AM) 93.7 fL (12/05/15 10:52 AM) MCV [80.0-98.0 fL] 30.9 pg (12/13/15 4:52 AM) 30.6 pg (12/05/15 10:52 AM) MCH [27.0-31.0 pg] 33.2 g/dL (12/13/15 4:52 AM) 32.7 g/dL (12/05/15 10:52 AM) MCHC [32.0-36.0 g/dL] 13.1 % (12/13/15 4:52 AM) 12.8 % (12/05/15 10:52 AM) RDW [11.5-14.5 %] 172 K/CMM (12/13/15 4:52 AM) 176 K/CMM (12/05/15 10:52 AM) Platelet [133-450 K/CMM] 12.7 fL *HI* (12/13/15 4:52 AM) 11.9 fL *HI* (12/05/15 10:52 AM) MPV [7.4-10.4 fL] 74.2 % (12/13/15 4:52 AM) 51.7 % (12/05/15 10:52 AM) Segs [45.0-75.0 %] 17.0 % *LOW* (12/13/15 4:52 AM) 33.8 % (12/05/15 10:52 AM) Lymphocytes [20.0-40.0 %] 8.6 % (12/13/15 4:52 AM) 9.9 % (12/05/15 10:52 AM) Monocytes [2.0-12.0 %] 0.1 % (12/13/15 4:52 AM) 4.6 % *HI* (12/05/15 10:52 AM) Eosinophils [0.0-4.0 %] 0.1 % (12/13/15 4:52 AM) 0.0 % (12/05/15 10:52 AM) Basophils [0.0-1.0 %] 9.4 K/CMM *HI* (12/13/15 4:52 AM) 3.0 K/CMM (12/05/15 10:52 AM) Segs-Bands # [1.5-8.1 K/CMM] 2.2 K/CMM (12/13/15 4:52 AM) 2.0 K/CMM (12/05/15 10:52 AM) Lymphocytes # [1.0-5.5 K/CMM] 1.1 K/CMM *HI* (12/13/15 4:52 AM) 0.6 K/CMM (12/05/15 10:52 AM) Monocytes # [0.0-0.8 K/CMM] 0.0 K/CMM (12/13/15 4:52 AM) 0.3 K/CMM (12/05/15 10:52 AM) Eosinophils # [0.0-0.5 K/CMM] 0.0 K/CMM (12/13/15 4:52 AM) 0.0 K/CMM (12/05/15 10:52 AM) Basophils # [0.0-0.2 K/CMM] Normal (12/13/15 4:52 AM) RBC Morph Few *NA* (12/13/15 4:52 AM) Large Plt 34.6 seconds (12/13/15 4:52 AM) PTT [22.9-35.8 seconds] Immunizations No data available for this section Procedures Procedure Date Related Diagnosis Body Site Lumbar spinal fusion1 09/18/13 Injection of steroid into facet joint2 08/31/11 Procedure on spine3 06/22/09 Spinal decompression with discectomy4 08/18/07 Procedure on spine5 1Stage I L5-S1 Lumbar Discestomy and fusion. 2L5-S1 3L2-, partoal L3 corpectomy, decompression and anterior Spinal fusion with fixation from L1-L4. 4L1-L2, L2-L3 Anterior discetomy and fusion. 5Multiple spine procedures including removal of [id number], I & D Lumbar wound, 2007, (pt doesn't know what kind of infection, denies MRSA); De compression/Fusion L3-4, 2002 and 2004 Social History Social History Type Response Substance Abuse Use: None. Exercise 1 Alcohol Never Smoking Status Never smoker; Exposure to Tobacco Smoke None; Cigarette Smoking Last 365 Days No; Reg Smoking Cessation Counseling No 1Not currently exercising; states would become dyspneic if walked 2 blocks or went up 2 flights of stairs. Assessment and Plan Extracted from: Title: Progress Note * Author: John Ritter MD Date: 12/15/15 Impression and Plan The patient was seen and examined by me with the resident/BUTCHER SUPERVISOR/PA and I agree with the History/Exam documented. POD#3 s/p right partial knee replacement. continue PT. Discharge tomorrow. Extracted from: Title: Hospitalist Consult Note Author: Jorge Jaramillo DO Date: 12/12/15 Assessment/Plan 1.Right knee pain s/p partial R knee arthroplastly POD#0. Cont pain control, PT eval, DVT ppx, IS, serial exams. 2.Arthritis supportive care, PT 3.Acid reflux cont protonix 4.Anxiety on cymbaltaper home med rec 5.Neuropathy cont gabapentin 6.Obesity, morbid (more than 100 lbs over ideal weight or BMI > 40) to encourage weight loss once ambulating Prophylaxis lovenox Disposition pending PT eval, pain control
--- NOTE | 2018-05-25 18:33 | Diagnostic Imaging Report ---
EXAM: CT Abdomen and Pelvis WITHOUT contrast INDICATION: Pain COMPARISON: None. TECHNIQUE: Abdomen and Pelvis was scanned utilizing a multidetector helical scanner without the use of IV contrast. Coronal and sagittal reformations were obtained. IV CONTRAST: None COMPLICATIONS: None RADIATION DOSE: Total DLP: 764 mGy*cm Estimated effective dose: (DLP x 0.015 x size factor) mSv CTDIvol has been reviewed. It is below the limits set by the Radiation Protocol Committee (RPC). Appropriate CT dose reduction techniques were utilized. FINDINGS: Abdomen: Lung Bases: No acute findings. Solid Organs: Moderate hepatic steatosis. Cholecystectomy clips. Otherwise, solid organs unremarkable. Upper GI Tract: Small hiatal hernia. Decompressed stomach limits evaluation. No small bowel obstructive changes. Vascularity: No aortic aneurysm. Lymph Nodes: No suspicious adenopathy. Other: None. Pelvis: Bladder: Unremarkable. Other: Uterus/adnexa grossly unremarkable within limitations of CT. Colon: Scattered diverticula with no CT evidence of diverticulitis. Appendix not inflamed. Bones: Extensive degenerative and postsurgical changes. Spinal stimulator. IMPRESSION: 1. No definite acute finding within the abdomen or pelvis. 2. Hepatic steatosis. 3. Diverticulosis. Signed by: Dr. Dylan Pereira MD on 05/25/2018 6:29 PM
== END 2018-05-25 19:29 | disposition home or self-care (01) ==
LOC: FSED 17:21
DX: J02.0 Streptococcal pharyngitis (principal); K76.0 Fatty (change of) liver, not elsewhere classified; K57.90 Diverticulosis of intestine, part unspecified, without perforation or abscess without bleeding
CPT/HCPCS: 74176; 80048; 80076; 81003; 82553; 83518; 84484; 85025; 87400; 99284

== ENCOUNTER 2018-06-19 20:10 | Emergency (ER) | payer OTHER ==
[~2018-06-19] VITALS: Ht 149.9 cm; Wt 105.2 kg
--- OUTSIDE RECORDS SUMMARY | 2018-06-19 20:16 | XMS REPORT ---
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 Allergies, Adverse Reactions, Alerts This patient has no known allergies or adverse reactions. Medications This patient has no known medications. Encounters Start Date/Time End Date/Time Encounter Type Admission Type Attending Clinicians Care Facility Care Department Encounter ID 2017-07-22 12:34:00 2017-07-22 12:34:00 Outpatient C [facility] [id number] 2017-04-21 15:12:00 2017-04-21 15:12:00 Emergency E JR CONNELL [facility] [id number] Results Test Description Test Time Test Comments Text Results Atomic Results Result Comments CT ABD/PEL WO CONTRAST-HOPD 2018-05-25 18:27:00 [place] [id number] Patient Name: BELEM FONTAINE MR #: [id number] : 1960 Age/Sex: 58/F Req #: [id number] Adm Physician: Ordered by: PENELOPE MONIQUE MD Report #: [id number] Location: [facility] Room/Bed: Procedure: [id number] HOPD/CT ABD/PEL WO CONTRAST-HOPD Exam Date: 05/25/18 Exam Time: 1758 REPORT STATUS: Signed EXAM: CT Abdomen and Pelvis WITHOUT contrast INDICATION: Pain COMPARISON: None. TECHNIQUE: Abdomen and Pelvis was scanned utilizing a multidetector helical scanner without the use of IV contrast. Coronal and sagittal reformations were obtained. IV CONTRAST: None COMPLICATIONS: None RADIATION DOSE: Total DLP: 764 mGy*cm Estimated effective dose: (DLP x 0.015 x size factor) mSv CTDIvol has been reviewed. It is below the limits set by the Radiation Protocol Committee (RPC). Appropriate CT dose reduction techniques were utilized. FINDINGS: Abdomen: Lung Bases: No acute findings. Solid Organs: Moderate hepatic steatosis. Cholecystectomy clips. Otherwise, solid organs unremarkable. Upper GI Tract: Small hiatal hernia. Decompressed stomach limits evaluation. No small bowel obstructive changes. Vascularity: No aortic aneurysm. Lymph Nodes: No suspicious adenopathy. Other: None. Pelvis: Bladder: Unremarkable. Other: Uterus/adnexa grossly unremarkable within limitations of CT. Colon: Scattered diverticula with no CT evidence of diverticulitis. Appendix not inflamed. Bones: Extensive degenerative and postsurgical changes. Spinal stimulator. IMPRESSION: 1. No definite acute finding within the abdomen or pelvis. 2. Hepatic steatosis. 3. Diverticulosis. Signed by: Dr. Dylan Pereira MD on 05/25/2018 6:29 PM Dictated By: DYLAN PEREIRA MD 28 Transcribed By: RAIN on 05/25/181828 COPY TO: PENELOPE MONIQUE MD [facility] MAMMO SCREENING MATTHIAS W/CAD 2017-07-22 16:21:41 [facility] MAMMO SCREENING MATTHIAS W/CADZ12.31: ENCNTR SCREEN MAMMOGRAM FOR MALIGNANT NEOPLASM OF BREAST.Dictation Location: [id number] Information: Screening mammogramTechnique: Bilateral digital mammogram with computer assisted diagnosis. Bilateral CC and MLO views were obtained.Comparison: Prior mammograms dating back to 06/27/2013Findings: There are scattered areas of fibroglandular density. There are nosuspicious masses or microcalcifications.IMPRESSION: No mammographic evidence of malignancy.ACR BI- RADS CATEGORY 1: NEGATIVERECOMMENDATION: FOLLOW UP MAMMOGRAM IN 1 YEAR. Basic Metabolic Panel 2017-04-21 19:29:00 Sodium (test code=NA) 136 mmol/L 135-145 Potassium (test code=K) 3.8 mmol/L 3.5-5.1 Chloride (test code=CL) 103 mmol/L 98-105 Carbon Dioxide (test code=CO2) 21 mmol/L 22-29 Glucose (test code=GLU) 99 mg/dL 70-115 Blood Urea Nitrogen (test code=BUN) 15 mg/dL 6-20 Creatinine (test code=CREAT) 0.8 mg/dL 0.5-0.9 Calcium (test code=CA) 9.4 mg/dL 8.3-10.5 BUN/Creatinine Ratio (test code=BCRATIO) 18.8 Anion Gap (test code=AGAP) 12 mmol/L 7-16 Estimated GFR (test code=GFR) >60 mL/min/1.73m2 eGFR (estimated Glomerular Filtration Rate) is an estimated value,calculated from the patient's serum creatinine using the MDRD equation.It is NOT the patient's actual GFR. The eGFR provides a more clinicallyuseful measure of kidney disease than serum creatinine alone.This calculation takes sex and race into account, if the informationis provided. If the race is not provided, and the patient isAfrican-Syrian, multiply by 1.212. If sex is not provided, and thepatient is female, multiply by 0.742. Results for patients <18 years ofage have not been validated by the MDRD study and should be interpretedwith caution.eGFR Result Interpretation:eGFR > or=60 is in the Normal RangeeGFR < 60 may mean kidney diseaseeGFR < 15 may mean kidney failureRanges recommended by the National Kidney Foundat ion,http://nkdep.nih.gov Comprehensive Metabolic [id number] 17:34:00* Test Item Value Reference Range Comments Sodium (test code=NA) 135 mmol/L 135-145 Potassium (test code=K) 5.7 mmol/L 3.5-5.1 HEMOLYZED Chloride (test code=CL) 102 mmol/L 98-105 Carbon Dioxide (test code=CO2) 20 mmol/L 22-29 Glucose (test code=GLU) 104 mg/dL 70-115 Blood Urea Nitrogen (test code=BUN) 16 mg/dL 6-20 Creatinine (test code=CREAT) 0.8 mg/dL 0.5-0.9 Calcium (test code=CA) 9.6 mg/dL 8.3-10.5 Prot Total (test code=TP) 8.4 g/dL 6.4-8.3 Albumin (test code=ALB) 4.2 g/dL 3.5-5.2 A/G Ratio (test code=AGRATIO) 1.0 Ratio Globulin (test code=GLOB) 4.2 2.9-3.1 Bili Total (test code=TBIL) 0.7 mg/dL 0.1-0.9 Alk Phos (test code=APHOS) 93 U/L 35-104 AST (test code=AST) 49 U/L 1-32 HEMOLYZED ALT (test code=ALT) 26 U/L 1-33 BUN/Creatinine Ratio (test code=BCRATIO) 20.0 Anion Gap (test code=AGAP) 13 mmol/L 7-16 Estimated GFR (test code=GFR) >60 mL/min/1.73m2 eGFR (estimated Glomerular Filtration Rate) is an estimated value,calculated from the patient's serum creatinine using the MDRD equation.It is NOT the patient's actual GFR. The eGFR provides a more clinicallyuseful measure of kidney disease than serum creatinine alone.This calculation takes sex and race into account, if the informationis provided. If the race is not provided, and the patient isAfrican-Syrian, multiply by 1.212. If sex is not provided, and thepatient is female, multiply by 0.742. Results for patients <18 years ofage have not been validated by the MDRD study and should be interpretedwith caution.eGFR Result Interpretation:eGFR > or=60 is in the Normal RangeeGFR < 60 may mean kidney diseaseeGFR < 15 may mean kidney failureRanges recommended by the National Kidney Foundat ion,http://nkdep.nih.gov CK [id number] 17:34:00* Test Item Value Reference Range Comments CK (test code=CK) 174 U/L 26-192 CK [id number] 17:34:00* Test Item Value Reference Range Comments CK (test code=CK) 174 U/L 26-192 CKMB (test code=CKMB) 5.4 ng/mL 0.0-2.8 CKMB% (test code=CKMBP) 3.1 % 0.0-3.4 Troponin [id number] 17:34:00* Test Item Value Reference Range Comments Troponin T (test code=AISHWARYA) <0.010 ng/mL 0.000-0.090 CBC with [id number] 17:16:00* Test Item Value Reference Range Comments WBC (test code=WBC) 7.8 K/cumm 4.4-10.5 RBC (test code=RBC) 4.67 M/cumm 3.75-5.20 Hemoglobin (test code=HGB) 14.6 gm/dL 12.2-14.8 Hematocrit (test code=HCT) 45.4 % 36.5-44.4 MCV (test code=MCV) 97.3 fL 80-100 MCH (test code=MCH) 31.2 pg 27.0-32.5 MCHC (test code=MCHC) 32.1 g/dL 32.0-37.5 RDW (test code=RDW) 13.2 % 11.5-14.5 Platelet Count (test code=PLTCT) 138 K/cumm 140-440 MPV (test code=MPV) 10.9 fL Diff Method (test code=DIFFM) Auto Neutrophil (test code=NEUT) 71.0 % 36-70 Lymphocyte (test code=LYMPH) 22.4 % 12-44 Monocyte (test code=MONO) 4.1 % 0-11 Eosinophil (test code=EOS) 2.1 % 0-7 Basophil (test code=BASO) 0.4 % 0-2 Neutro Abs (test code=ANEUT) 5.6 K/cumm 1.6-7.4 Lymph Abs (test code=ALYMPH) 1.8 K/cumm 0.5-4.6 [place] Abs (test code=AMONO) 0.3 K/cumm 0.0-1.2 Eos Abs (test code=AEOS) 0.16 K/cumm 0.00-0.74 Baso Abs (test code=ABASO) 0.0 K/cumm 0.00-0.21 XR CHEST 1 [id number] 17:04:16Portable AP chest, 1 viewLocation Code: [id number] HISTORY: Chest painCOMPARISON: 11/09/2015.COMMENT: The lungs are clear and well inflated. The costophrenic angles aresharp. The cardiomediastinal silhouette is mildly enlarged. The bonesare intact. Spinal stimulator is seen in the mid thoracic spine.IMPRESSION: Borderline cardiomegaly without acute abnormality.
[2018-06-19] MEDS ORDERED: ONDANSETRON HCL INJ 2MG/ML 2ML 2 MG/ML VIAL IV STA (20:25)
[2018-06-19] MEDS ORDERED: SODIUM CHLORIDE 0.9% 1000ML 1,000 ML IV SCH (20:30)
[2018-06-19] MEDS ORDERED: MORPHINE SULFATE INJ 4 MG/ML INJ 1ML IV ONE (20:30)
--- NOTE | 2018-06-19 22:44 | Diagnostic Imaging Report ---
CT Abdomen and Pelvis without contrast INDICATION: Nausea, vomiting TECHNIQUE: Thin collimation axial images obtained from the diaphragm to the level of the pubic symphysis without nonionic intravenous contrast. Dose reduction techniques used: Automated exposure control, adjustment of the mAs and/or kVp according to patient size, standardized low-dose protocol, and/or iterative reconstruction technique. RADIATION DOSE: Total DLP: 749.4 mGy*cm Estimated effective dose: (DLP x 0.015 x size factor) mSv CTDIvol has been reviewed. It is below the limits set by the Radiation Protocol Committee (RPC). COMPARISON: CT abdomen/pelvis 05/25/2018. ABDOMEN FINDINGS: Lung Bases: Trace bibasilar atelectasis.. There are prominent pericardial fat pads. Small hiatal hernia is present. Mild eventration of the right diaphragm is stable. Liver: Profound steatosis is redemonstrated. The right lobe measures 18 cm in length. No mass. Gallbladder: Absent. No ductal dilatation. Pancreas: Normal attenuation without mass. Spleen: Normal size without mass. Adrenal Glands: No evidence for mass. Kidneys: Right: There is streak artifact from lumbar spine hardware across the parenchyma. No calculus. No cortical mass or hydronephrosis Left: Streaky artifact across the parenchyma from lumbar hardware. No calculus. Cyst in the anterior interpolar cortex is stable. No hydronephrosis. Lymph Nodes: No enlarged abdominal or retroperitoneal lymph nodes. Aorta: Normal in diameter. PELVIS FINDINGS: Bowel: Stomach: Normal in caliber with normal wall thickness. Small Bowel: Normal in caliber with normal wall thickness. Large Bowel: Moderate burden of stool throughout. Diverticulosis coli abdominal in the left colon. No associated inflammation. Appendix: Normal. Bladder: Normal. Ureters: No ureteral dilatation or calculus. The uterus is present and normal in morphology. There are calcifications the parametrial vessels. No adnexal mass. Peritoneum/retroperitoneum: No free fluid or fluid collection. Bones: Spinal stimulator in the lower thoracic spine is redemonstrated. Moderate degenerative changes of T8-9 are redemonstrated. Corpectomy and fusion hardware of the upper lumbar spine are stable. Laminectomy and posterior fusion hardware of the lower lumbar spine are stable. The bones are diffusely demineralized. No listhesis. No surrounding fluid collections. Soft tissues: Unremarkable. IMPRESSION: 1. Steatosis and hepatomegaly. 2. Small hiatal hernia. Diverticulosis coli. No evidence for bowel obstruction or inflammation. 3. No evidence of renal calculus or obstructive uropathy. 4. Stable postoperative changes of the spine. 5. No new CT findings to explain nausea/vomiting. Signed by: Dr. Maite Melara MD on 06/19/2018 10:41 PM
[2018-06-19] MEDS ORDERED: PEPCID20 MG PO (23:58)
[2018-06-19] MEDS ORDERED: CARAFATE1 GM/10 ML PO (23:58)
[2018-06-20 00:56] VITALS: BP 146/84
== END 2018-06-20 00:20 | disposition home or self-care (01) ==
LOC: FSED 20:10
DX: R11.2 Nausea with vomiting, unspecified (principal); R10.9 Unspecified abdominal pain; E86.0 Dehydration; K29.00 Acute gastritis without bleeding; K46.9 Unspecified abdominal hernia without obstruction or gangrene
CPT/HCPCS: 74176; 80053; 81003; 82553; 84484; 85025; 93005; 99284; J2270; J2405

== ENCOUNTER 2018-08-08 12:10 | Emergency (ER) | payer OTHER ==
[~2018-08-08] VITALS: Ht 149.9 cm; Wt 105.2 kg
[~2018-08-08 12:10] MED LIST: CARAFATE1 GM/10 ML PO; PEPCID20 MG PO
[2018-08-08] MEDS ORDERED: FAMOTIDINE 20 MG/2 ML VIAL IV STA (12:38)
[2018-08-08] MEDS ORDERED: ONDANSETRON HCL INJ 2MG/ML 2ML 2 MG/ML VIAL IV STA (12:38)
[2018-08-08] MEDS ORDERED: SODIUM CHLORIDE 0.9% 1000ML 1,000 ML IV SCH (12:45)
[2018-08-08] MEDS ORDERED: SODIUM CHLORIDE 0.9% 1000ML 1,000 ML IV ONE (13:00)
--- NOTE | 2018-08-08 13:01 | Diagnostic Imaging Report ---
Exam: Abdominal film Clinical History: Diarrhea, vomiting, mid abdominal pain Comparison: CT abdomen and pelvis 06/19/2018 DISCUSSION: Spinal stimulator device and extensive lumbar spine surgical hardware are again noted. The bowel gas pattern shows no dilated, air-filled loops of bowel. Gas and fecal material are noted throughout the large bowel. Surgical clips scattered throughout the abdomen, including the right upper quadrant, related to prior cholecystectomy. Regional skeletal structures are intact with postsurgical changes of the lumbar spine. IMPRESSION: Nonobstructive bowel gas pattern. Moderate stool burden within the large bowel and rectum. Signed by: Dr. John Troy M.D. on 08/08/2018 12:58 PM
== END 2018-08-08 14:58 | disposition home or self-care (01) ==
LOC: FSED 12:10
DX: R11.2 Nausea with vomiting, unspecified (principal); E66.01 Morbid (severe) obesity due to excess calories; Z68.42 Body mass index [BMI] 45.0-49.9, adult; G62.9 Polyneuropathy, unspecified; K64.9 Unspecified hemorrhoids; K57.90 Diverticulosis of intestine, part unspecified, without perforation or abscess without bleeding; L71.9 Rosacea, unspecified; K76.0 Fatty (change of) liver, not elsewhere classified; I73.9 Peripheral vascular disease, unspecified; G47.30 Sleep apnea, unspecified; E55.9 Vitamin D deficiency, unspecified; G44.209 Tension-type headache, unspecified, not intractable
CPT/HCPCS: 74018; 80048; 80076; 81003; 85025; 99284; J2405; J7030

== ENCOUNTER 2018-10-14 17:02 | Emergency (ER) | payer OTHER ==
[~2018-10-14] VITALS: Ht 149.9 cm; Wt 99.8 kg
[2018-10-14 18:15] VITALS: BP 130/80
== END 2018-10-14 18:17 | disposition home or self-care (01) ==
LOC: FSED 17:02
DX: J02.9 Acute pharyngitis, unspecified (principal); I11.0 Hypertensive heart disease with heart failure; I50.9 Heart failure, unspecified; E11.42 Type 2 diabetes mellitus with diabetic polyneuropathy; E03.9 Hypothyroidism, unspecified; K21.9 Gastro-esophageal reflux disease without esophagitis; E66.01 Morbid (severe) obesity due to excess calories; Z68.41 Body mass index [BMI] 40.0-44.9, adult; M54.9 Dorsalgia, unspecified; G89.29 Other chronic pain
CPT/HCPCS: 83518; 99283

== ENCOUNTER 2018-11-07 09:56 | Emergency (ER) | payer OTHER ==
[~2018-11-07] VITALS: Ht 149.9 cm; Wt 99.8 kg
--- OUTSIDE RECORDS SUMMARY | 2018-11-07 09:59 | XMS REPORT | Continuity of Care Document ---
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 Role Phone Unype Information [employer] Unavailable Unavailable Problems Problem Status Onset Date Classification Date Reported Comments Source 1ST NIGHT - 16811 Active 09/19/2017 [facility] G44.209 Active 09/13/2017 [facility] UNILATERAL PRIMARY OSTEOARTHRITIS OF THE Active 10/17/2015 [facility] Acid reflux Active Problem 10/04/2017 [facility] Anxiety Active Problem 10/04/2017 [facility] Arthritis Active Problem 10/04/2017 [facility] Chest pain1 Resolved Problem 10/04/2017 States had chest pain about 6 months ago; pt didn't remember who she saw or what was done. Later provided info that she saw Dr. Lomeli, . Per Dr Lomeli's office pt was last seen in 2012, but now has an appointment for 12-07-15 for clearance. [facility] Cough with sputum2 Resolved Problem 10/04/2017 States had a productive cough 3 weeks ago, states now resolved. [facility] Dyspnea on exertion3 Active Problem 10/04/2017 Walking 2 blocks or 2 flights of stairs. [facility] Neuropathy4 Active Problem 10/04/2017 Numbness 2 fingers Right hand. [facility] Obesity, morbid (Confirmed)5 Active Problem 10/04/2017 BMI 55 [facility] Poor historian6, 7 Active Problem 10/04/2017 Pt denies memory issues,friend with patient states her takes care of her medical arrangements. Pt was unable to provide much information regarding her health history at clinic visit. Pt later provided some surgical history info. [facility] Final: Osteoarthritis of knee, unspecified 12/18/2015 [facility] OSTEOARTHRITIS OF KNEE, UNSPECIFIED Active [facility] Medications Medication Details Route Status Patient Instructions [...] / Hydrocodone Bitartrate 10 MG Oral Tablet [Talmo 10/325] 1 tab, PO, Q6H, PRN Pain [...] Route: IV, Initial Loading Dose: 2 mg, BAIL BONDING AGENT Dose: 1 mg, BAIL BONDING AGENT Lockout: 10 minutes, Continuous Basal Rate: 0 [...] / Hydrocodone Bitartrate 10 MG Oral Tablet [Talmo 10/325] 2 tab, Route: PO, Drug Form: TAB, Dosing Weight 96.364, kg, Q6H, PRN Pain Score 7-10, Start date: 12/13/15 8:42:00 CDT, Duration: 30 day, Stop date: 01/12/16 8:41:00 CDTNotes: Do not exceed 4gm/day of acetaminophen. (Same as: Talmo 325/10) No Longer Active 12/13/2015 [facility] [...] 0.4 mL, Route: SUB-Q, Drug form: INJ, [id number], Dosing Weight 96.364, kg, Consider for obese [...] Route: IV, Initial Loading Dose: 2 mg, BAIL BONDING AGENT Dose: 1 mg, BAIL BONDING AGENT Lockout: 10 minutes, Continuous Basal Rate: 0 [...] Stop date: 01/11/16 8:54:00 CDTNotes: (Same As: Enoch) No Longer Active 12/12/2015 [facility] [...] [facility] Allergies, Adverse Reactions, Alerts No Known Medication Allergies Immunizations No Data Provided for This Section Results Order Name Results Value Reference Range Date Interpretation Comments Source CHEM PANEL eGFR 84 12/15/2015 Result Comment: The eGFR is calculated [...] and Spine CHEM PANEL Glucose Lvl 103 70 - 99 12/15/2015 [facility] CHEM PANEL Creatinine Lvl 0.80 0.50 - 1.40 12/15/2015 [facility] CHEM PANEL Potassium Lvl 3.4 3.5 - 5.1 12/15/2015 [facility] CHEM PANEL BUN 10 7 - 22 12/15/2015 [facility] CHEM PANEL Sodium Lvl 138 135 - 145 12/15/2015 [facility] CHEM PANEL CO2 25 24 - 32 12/15/2015 [facility] CHEM PANEL Chloride Lvl 104 95 - 109 12/15/2015 [facility] CHEM PANEL Calcium Lvl 8.7 8.5 - 10.5 12/15/2015 [facility] CHEM PANEL AGAP 12.4 10.0 - 20.0 12/15/2015 [facility] HEMATOLOGY Hct 39.3 36.0 - 48.0 12/15/2015 [facility] HEMATOLOGY Hgb 12.9 12.0 - 16.0 12/15/2015 [facility] ELECTROLYTES AGAP 13.3 10.0 - 20.0 12/13/2015 [facility] ELECTROLYTES Potassium Lvl 3.3 3.5 - 5.1 12/13/2015 [facility] ELECTROLYTES Sodium Lvl 142 135 - 145 12/13/2015 [facility] ELECTROLYTES Creatinine Lvl 0.82 0.50 - 1.40 12/13/2015 [facility] ELECTROLYTES BUN 10 7 - 22 12/13/2015 [facility] ELECTROLYTES Glucose Lvl 115 70 - 99 12/13/2015 [facility] ELECTROLYTES eGFR 81 12/13/2015 Result Comment: The eGFR is calculated [...] BMI. [facility] ELECTROLYTES CO2 27 24 - 32 12/13/2015 [facility] ELECTROLYTES Chloride Lvl 105 95 - 109 12/13/2015 [facility] ELECTROLYTES Calcium Lvl 8.8 8.5 - 10.5 12/13/2015 [facility] HEMATOLOGY MPV 12.7 7.4 - 10.4 12/13/2015 [facility] HEMATOLOGY WBC X 10x3 12.7 3.7 - 10.4 12/13/2015 [facility] HEMATOLOGY RBC X 10x6 4.08 4.20 - 5.40 12/13/2015 [facility] HEMATOLOGY Hgb 12.6 12.0 - 16.0 12/13/2015 [facility] HEMATOLOGY Hct 37.9 36.0 - 48.0 12/13/2015 [facility] HEMATOLOGY MCV 92.9 80.0 - 98.0 12/13/2015 [facility] HEMATOLOGY MCH 30.9 27.0 - 31.0 12/13/2015 [facility] HEMATOLOGY MCHC 33.2 32.0 - 36.0 12/13/2015 [facility] HEMATOLOGY RDW 13.1 11.5 - 14.5 12/13/2015 [facility] HEMATOLOGY Platelet 172 133 - 450 12/13/2015 [facility] HEMATOLOGY aPTT 34.6 22.9 - 35.8 12/13/2015 [facility] HEMATOLOGY Lymphocytes 17.0 20.0 - 40.0 12/13/2015 [facility] HEMATOLOGY Monocytes 8.6 2.0 - 12.0 12/13/2015 [facility] HEMATOLOGY Eosinophils 0.1 0.0 - 4.0 12/13/2015 [facility] HEMATOLOGY Basophils # 0.0 0.0 - 0.2 12/13/2015 [facility] HEMATOLOGY Basophils 0.1 0.0 - 1.0 12/13/2015 [facility] HEMATOLOGY Segs-Bands # 9.4 1.5 - 8.1 12/13/2015 [facility] HEMATOLOGY Lymphocytes # 2.2 1.0 - 5.5 12/13/2015 [facility] HEMATOLOGY Monocytes # 1.1 0.0 - 0.8 12/13/2015 [facility] HEMATOLOGY RBC Morph Normal (12/13/15 4:52 AM) 12/13/2015 [facility] HEMATOLOGY Segs 74.2 45.0 - 75.0 12/13/2015 [facility] HEMATOLOGY Large Plt Few 12/13/2015 [facility] HEMATOLOGY Eosinophils # 0.0 0.0 - 0.5 12/13/2015 [facility] ELECTROLYTES Sodium Lvl 144 135 - 145 12/05/2015 [facility] ELECTROLYTES Creatinine Lvl 0.82 0.50 - 1.40 12/05/2015 [facility] ELECTROLYTES Chloride Lvl 108 95 - 109 12/05/2015 [facility] ELECTROLYTES Potassium Lvl 3.8 3.5 - 5.1 12/05/2015 [facility] ELECTROLYTES Glucose Lvl 98 70 - 99 12/05/2015 [facility] ELECTROLYTES BUN 15 7 - 22 12/05/2015 [facility] ELECTROLYTES CO2 26 24 - 32 12/05/2015 [facility] ELECTROLYTES Calcium Lvl 9.1 8.5 - 10.5 12/05/2015 [facility] ELECTROLYTES eGFR 81 12/05/2015 Result Comment: The eGFR is calculated [...] BMI. [facility] ELECTROLYTES AGAP 13.8 10.0 - 20.0 12/05/2015 [facility] HEMATOLOGY RDW 12.8 11.5 - 14.5 12/05/2015 [facility] HEMATOLOGY Platelet 176 133 - 450 12/05/2015 [facility] HEMATOLOGY MPV 11.9 7.4 - 10.4 12/05/2015 [facility] HEMATOLOGY RBC X 10x6 3.95 4.20 - 5.40 12/05/2015 [facility] HEMATOLOGY Hgb 12.1 12.0 - 16.0 12/05/2015 [facility] HEMATOLOGY MCH 30.6 27.0 - 31.0 12/05/2015 [facility] HEMATOLOGY MCHC 32.7 32.0 - 36.0 12/05/2015 [facility] HEMATOLOGY Hct 37.0 36.0 - 48.0 12/05/2015 [facility] HEMATOLOGY MCV 93.7 80.0 - 98.0 12/05/2015 [facility] HEMATOLOGY WBC X 10x3 5.9 3.7 - 10.4 12/05/2015 [facility] HEMATOLOGY Monocytes # 0.6 0.0 - 0.8 12/05/2015 [facility] HEMATOLOGY Lymphocytes # 2.0 1.0 - 5.5 12/05/2015 [facility] HEMATOLOGY Basophils # 0.0 0.0 - 0.2 12/05/2015 [facility] HEMATOLOGY Eosinophils # 0.3 0.0 - 0.5 12/05/2015 [facility] HEMATOLOGY Basophils 0.0 0.0 - 1.0 12/05/2015 [facility] HEMATOLOGY Monocytes 9.9 2.0 - 12.0 12/05/2015 [facility] HEMATOLOGY Lymphocytes 33.8 20.0 - 40.0 12/05/2015 [facility] HEMATOLOGY Eosinophils 4.6 0.0 - 4.0 12/05/2015 [facility] HEMATOLOGY Segs-Bands # 3.0 1.5 - 8.1 12/05/2015 [facility] HEMATOLOGY Segs 51.7 45.0 - 75.0 12/05/2015 [facility] Pathology Reports No Data Provided for This Section Diagnostic Reports Report Value Date Source Brain wo contrast CT Patient Name: BELEM FONTAINE : 1960; Age: 57 years y/o Female MR: [id number] Study: Brain wo contrast CT 09/24/2017 10:35 [...] IMPRESSION: No evidence of acute intracranial process. [id number] chronic small vessel ischemic changes in the supratentorial white matter. If there is further concern for intracranial pathology or acute stroke, further assessment with an MRI of the brain should be considered. SL: [id number] 09/24/2017 [facility] 1-2 Views unilateral DX EXAM: Right [...] post hemiarthroplasty medial compartment right knee. 12/12/2015 [facility] Consultation Notes No Data Provided for This Section Discharge Summaries No Data Provided for This Section History and Physicals No Data Provided for This Section Vital Signs Vital Sign Value Date Comments [...] Date DC Date Status Source [facility] Inpatient [id number] John Ritter 12/12/2015 12/15/2015 [facility] Outpatient [id number] Giles Sifuentes 09/24/2017 09/25/2017 [facility] Outpatient [id number] Guilherme Orozco 10/01/2017 10/02/2017 [facility] Procedures Procedure Code Date Perfomer Comments Source Lumbar spinal fusion<sup>1</sup> [id number] 09/18/2013 Stage I L5-S1 Lumbar Discestomy and fusion. [facility] Lumbar spinal fusion<sup>1</sup> [id number] 09/18/2013 Stage I L5-S1 Lumbar Discestomy and fusion. [facility] Injection of steroid into facet joint<sup>2</sup> [id number] 08/31/2011 L5-S1 [facility] Injection of steroid into facet joint<sup>2</sup> [id number] 08/31/2011 L5-S1 [facility] Procedure on spine<sup>3</sup> [id number] 06/22/2009 L2-, partoal L3 corpectomy, decompression and anterior Spinal fusion with fixation from L1- L4. [facility] Procedure on spine<sup>3</sup> [id number] 06/22/2009 L2-, partoal L3 corpectomy, decompression and anterior Spinal fusion with fixation from L1- L4. [facility] Spinal decompression with discectomy<sup>4</sup> [id number] 08/18/2007 L1-L2, L2-L3 Anterior discetomy and fusion. [facility] Spinal decompression with discectomy<sup>4</sup> [id number] 08/18/2007 L1-L2, L2-L3 Anterior discetomy and fusion. [facility] Procedure on spine<sup>5</sup> [id number] Multiple spine procedures including removal of [id number], I & D Lumbar wound, 2007, (pt doesn't know what kind of infection, denies MRSA); Decompression/Fusion L3-4, 2002 and 2004 [facility] Procedure on spine<sup>5</sup> [id number] Multiple spine procedures including removal of [id number], I & D Lumbar wound, 2007, (pt doesn't know what kind of infection, denies MRSA); Decompression/Fusion L3-4, 2002 and 2004 [facility] Assessment and Plan Assessment and Plan Date Source Extracted from:Title: Progress Note * Author: John Ritter MD Date: 12/15/15 Impression and Plan The patient was seen and examined by me with the resident/BURR MACHINE OPERATOR/PA and I agree with the History/Exam documented. POD#3 s/p right partial knee replacement. continue PT. Discharge tomorrow. Extracted from:Title: Hospitalist Consult Note Author: Jorge Jaramillo DO [...] lovenox Disposition pending PT eval, pain control 12/15/2015 [facility] Plan of Care No Data Provided for This Section Social History Social History Date Source Social History TypeResponse Substance Abuse Use: None. Exercise 1 Alcohol Never Smoking Status Never smoker; Exposure to Tobacco Smoke None; Cigarette Smoking Last 365 Days No; Reg Smoking Cessation Counseling No entered on: 12/12/15 1Not currently exercising; states would become dyspneic if walked 2 blocks or went up 2 flights of stairs. 12/06/2015 [facility] Social History TypeResponse Substance Abuse Use: None. Exercise 1 Alcohol Never Smoking Status Never smoker; Exposure to Tobacco Smoke None; Cigarette Smoking Last 365 Days No; Reg Smoking Cessation Counseling No 1Not currently exercising; states would become dyspneic if walked 2 blocks or went up 2 flights of stairs. 12/06/2015 [facility] Family History No Data Provided for This Section Advance Directives No Data Provided for This Section Functional Status No Data Provided for This Section
[2018-11-07] MEDS ORDERED: DIATRIZOATE MEGL/DIATRIZOA SOD 30 ML BTL PO ONE (10:29)
[2018-11-07 10:59] LABS: BASOPHILS % 0.2 % (0.0-1.0); HEMOGLOBIN 11.6 g/dL (12.0-16.0); LYMPHOCYTES # (AUTO) 0.9 (1.0-3.2); MEAN CORPUSCULAR HEMOGLOBIN 31.2 pg (28-32); MEAN CORPUSCULAR HGB CONC 35.2 g/dL (31-35); MEAN CORPUSCULAR VOLUME 88.7 fL (81-99); MONOCYTES # (AUTO) 0.9 (0.2-0.8); MONOCYTES % 9.7 % (4.4-11.3); NEUTROPHILS # (AUTO) 7.1 (2.1-6.9); NEUTROPHILS % 79.5 % (38.7-80.0); PLATELET COUNT 162 x10e3/uL (140-360); RED BLOOD COUNT 3.72 x10e6/uL (3.6-5.1)
[2018-11-07 11:14] LABS: INR 1.13; PROTHROMBIN TIME 15.1 seconds (11.9-14.5)
[2018-11-07 11:15] LABS: PARTIAL THROMBOPLASTIN TIME 42.4 seconds (23.8-35.5)
[2018-11-07 11:21] LABS: INFLUENZAE A&B ANTIGEN (RAPID) NEGATIVE (NEGATIVE)
[2018-11-07 11:26] LABS: ALANINE AMINOTRANSFERASE 51 IU/L (0-55); ALBUMIN 3.5 g/dL (3.5-5.0); ALBUMIN/GLOBULIN RATIO 0.8 (0.8-2.0); ALKALINE PHOSPHATASE 71 IU/L (40-150); ANION GAP 13.5 mmol/L (8-16); B-TYPE NATRIURETIC PEPTIDE2 275.8 pg/mL (0-100); BLOOD UREA NITROGEN 12 mg/dL (7-26); BUN/CREATININE RATIO 13 (6-25); CALCIUM 9.5 mg/dL (8.4-10.2); CARBON DIOXIDE 25 mmol/L (22-29); CHLORIDE 99 mmol/L (98-107); CREATINE KINASE 205 IU/L (29-168); CREATININE, SERUM 0.94 mg/dL (0.57-1.11); EST GLOMERULAR FILTRATION RATE > 60 ML/MIN (60-); GLUCOSE 150 mg/dL (74-118); LIPASE 20 U/L (8-78); POTASSIUM 3.5 mmol/L (3.5-5.1); SODIUM 134 mmol/L (136-145)
[2018-11-07] MEDS: SODIUM CHLORIDE 0.9% 1000ML 1,000 ML IV STA (11:30)
[2018-11-07] MEDS: ONDANSETRON HCL INJ 2MG/ML 2ML 2 MG/ML VIAL IV ONE (11:31)
[2018-11-07] MEDS: KETOROLAC TROMETHAMINE 30 MG/ML VIAL IV ONE (11:32)
[2018-11-07 11:34] LABS: BILIRUBIN,URINE NEGATIVE (NEGATIVE); COLOR,URINE YELLOW (YELLOW); KETONES,URINE NEGATIVE (NEGATIVE); LEUKOCYTE ESTERASE ,URINE MODERATE (NEGATIVE); NITRITE,URINE NEGATIVE (NEGATIVE); PROTEIN,URINE DIPSTICK 1+ (NEGATIVE); URINE UROBILINOGEN 1 mg/dL (0.2 - 1)
[2018-11-07] MEDS: DICYCLOMINE HCL 20 MG/2 ML VIAL IM ONE (11:34)
[2018-11-07 11:35] LABS: CLARITY,URINE HAZY (CLEAR)
[2018-11-07] MEDS: IBUPROFEN 600 MG TAB PO ONE (11:36)
[2018-11-07 11:55] LABS: STREPTOCOCCUS GRP A ANTIGEN NEGATIVE (NEGATIVE)
[2018-11-07 12:06] LABS: BACTERIA,URINE FEW /HPF; EPITHELIAL CELLS,URINE FEW /LPF; RBC,URINE 0-5 /HPF (0-5); WBC,URINE (MAN) 21-50 /HPF (0-5)
--- NOTE | 2018-11-07 12:18 | Diagnostic Imaging Report ---
Chest, 1 view, 11/07/2018. History: Vomiting. Comparison: None available. Findings: There is poor inspiration. The cardiomediastinal silhouette and pulmonary vasculature are within normal limits for a portable exam. There is no focal consolidation or pleural effusion. Overlying stimulator leads are noted. There are no acute osseous or soft tissue abnormalities. Impression: No acute cardiopulmonary abnormality. Signed by: Nick Otto on 11/07/2018 12:14 PM
--- NOTE | 2018-11-07 13:23 | Diagnostic Imaging Report ---
CT of the abdomen and pelvis, with contrast, 11/07/2018. History: Vomiting, abdominal pain. Comparison: 06/19/2018. Technique: Multidetector CT scanning of the abdomen and pelvis was performed from the level of the lung bases to the inferior pubic rami after intravenous and oral administration of contrast. Coronal and sagittal multiplanar reformations were obtained. RADIATION DOSE: Total DLP: 752 mGy*cm Dose modulation, iterative reconstruction, and/or weight based adjustment of the mA/kV was utilized to reduce the radiation dose to as low as reasonably achievable. Discussion: LUNG BASES: No visualized abnormalities. ABDOMEN: Diffuse low-density of the liver is again noted, without focal hepatic abnormality. Cholecystectomy clips are present. Small simple cyst is present in the left kidney anteriorly. The biliary tree, spleen, pancreas, adrenal glands, and right kidney are normal. The hepatic vein, portal vein, and splenic vein are patent. The abdominal aorta is within normal limits for size. Small hiatal hernia is again noted. The appendix is visualized and is normal. Scattered diverticuli are present within the distal colon without evidence of adjacent inflammation. The stomach, small bowel, and large bowel are otherwise unremarkable. There is no evidence of adenopathy or free fluid. PELVIS: The bladder, uterus, adnexa are normal in appearance. There is no evidence of free fluid or adenopathy. BONES AND SOFT TISSUES: Extensive degenerative and postsurgical changes are present throughout the lumbar spine. Spinal stimulator is again seen in the lower thoracic spine. No acute osseous abnormality. IMPRESSION: 1. Severe fatty infiltration of the liver is again noted. 2. Colonic diverticulosis without evidence of diverticulitis. 3. No acute findings. Signed by: Nick Otto on 11/07/2018 1:20 PM
[2018-11-07] MEDS: CEFTRIAXONE SOD 1 GM/NS 50 ML 50 ML IV ONE (13:30)
[2018-11-07] MEDS ORDERED: IOPAMIDOL 370 MG/ML 200 ML INFUS..BTL INJ ONE (14:48)
[2018-11-07] MEDS ORDERED: SODIUM CHLORIDE 0.9% 50ML 50 ML ONE ×2 (14:48→14:51)
[2018-11-07 14:59] VITALS: BP 102/65
== END 2018-11-07 15:00 | disposition home or self-care (01) ==
LOC: ER 09:56
DX: R10.84 Generalized abdominal pain (principal); N39.0 Urinary tract infection, site not specified; R11.2 Nausea with vomiting, unspecified; R11.14 Bilious vomiting; I11.0 Hypertensive heart disease with heart failure; I50.9 Heart failure, unspecified; E11.42 Type 2 diabetes mellitus with diabetic polyneuropathy; E03.9 Hypothyroidism, unspecified; K21.9 Gastro-esophageal reflux disease without esophagitis; M54.9 Dorsalgia, unspecified; G89.29 Other chronic pain; E66.01 Morbid (severe) obesity due to excess calories; K76.0 Fatty (change of) liver, not elsewhere classified; K57.90 Diverticulosis of intestine, part unspecified, without perforation or abscess without bleeding; Z68.42 Body mass index [BMI] 45.0-49.9, adult
CPT/HCPCS: 36415; 71045; 74177; 80053; 81001; 82550; 82553; 83518; 83605; 83690; 83880; 84484; 85025; 85610; 85730; 87040; 87070; 87086; 87186; 87400; 93005; 96372; 99284; J0500; J0696; J1885; J2405; J7030; Q9967

== ENCOUNTER → 2022-07-19 | Day surgery (SDC) | payer OTHER ==
[~2022-07-19] MED LIST changes: +ASPIRIN81 MG PO; +BENZOCAINE/TETRACAINE/BUTAMBEN AERO SPRAY 56 GM CAN ONE; +CRESTOR10 MG PO; +FENTANYL CITRATE/PF 100MCG/2 ML INJ ONE; +HYDROXYZIN10 MG/5 ML PO; +LACTATED RINGER'S 1,000 ML ONE; +LISINOPRIL10 MG PO; +LORTAB 10 MG-3473 ML PO; +LYRICA100 MG PO; +NATEGLINIDE60 MG PO; +ONDANSETRON ODT8 MG PO; +PROPOFOL IV EMULSION 100 ML IV ONE; +PROPOFOL IV EMULSION 50 ML IV ONE; +PROTONIX40 MG/ML PO; +SIMETHICONE 40 MG/0.6 ML BTL ONE; +TRAZODONE HCL50 MG PO; +ULTRAM 50MG50 MG PO; +[UNRECOGNIZED DRUG - OTHER]
[2022-07-19 18:15] VITALS: BP 128/66
== END | disposition home or self-care (01) ==
LOC: OR 13:07
PROVIDERS: ATTEND Internal Medicine Gastroenterology
DX: K29.50 Unspecified chronic gastritis without bleeding (principal); D12.0 Benign neoplasm of cecum; D12.2 Benign neoplasm of ascending colon; K63.89 Other specified diseases of intestine; K20.90 Esophagitis, unspecified without bleeding; K59.09 Other constipation; K21.9 Gastro-esophageal reflux disease without esophagitis; K44.9 Diaphragmatic hernia without obstruction or gangrene; K57.30 Diverticulosis of large intestine without perforation or abscess without bleeding; K64.8 Other hemorrhoids; Z71.3 Dietary counseling and surveillance; E11.9 Type 2 diabetes mellitus without complications; I10 Essential (primary) hypertension; Z71.89 Other specified counseling; E78.00 Pure hypercholesterolemia, unspecified; Z01.810 Encounter for preprocedural cardiovascular examination; Z79.82 Long term (current) use of aspirin; Z79.84 Long term (current) use of oral hypoglycemic drugs; Z79.85 Long-term (current) use of injectable non-insulin antidiabetic drugs; Z79.899 Other long term (current) drug therapy; Z68.42 Body mass index [BMI] 45.0-49.9, adult
CPT/HCPCS: 36415; 43239; 45380; 45385; 82948; 93005; C9113; J2704; J7121; 45378